=== PATIENT | male | born 1990 | race African-American/Black ===

== ENCOUNTER 2023-06-25 11:31 | Inpatient (IN) ==
--- NOTE | 2023-06-25 12:00 | CT Scan Report ---
CT cervical spine wo con CLINICAL HISTORY: Closed head injury TECHNIQUE: Multidetector row helical CT of the cervical spine was performed without administration of intravenous contrast. Coronal and sagittal reformations were obtained. Automated dose lowering techn iques and/or adjustment according to patient size were utilized for this exam. Comparison: None available at the time of this dictation. FINDINGS: No acute fractures or subluxations are identified. The vertebral body heights and disk spaces are wel l maintained. The alignment is normal. Soft tissues are unremarkable. IMPRESSION: No evidence of acute bony injury. ACT 112: Negative or not required by law. Electronically signed by: Neto Perez M.D. 06/25/2023 11:59 AM
--- NOTE | 2023-06-25 12:08 | CT Scan Report ---
HEAD CT NONCONTRAST CT DOSE: HISTORY: Closed head injury TECHNIQUE: Multiaxial CT images of the head were performed without the use of intravenous contrast. A utomated exposure control was utilized for this study. A dose lowering technique was utilized adheri ng to the principles of ALARA. Comparison: None. Findings: Mild mucosal thickening within the ethmoid air cells. No fluid levels within the paranasal sinuses. The mastoid air cells are clear. The calvarium and skull base are intact. The ventricles and sulci are within normal limits. There is no mass, hematoma, midline shift, or acute infarct. Within the left side of the sella. There is a 2.3 cm oval-shaped density which may be contiguous with the ad jacent left intracranial internal carotid artery. Therefore, this could represent a left ICA aneurysm or possibly suprasellar mass. Impression: 1. No acute infarct or intracranial hemorrhage. 2. There is a 2.3 cm oval-shaped density which may be contiguous with the adjacent left intracranial internal carotid artery. Therefore, this could represent a left ICA aneurysm or possibly suprasellar mass. This is a nonemergent finding. Therefore, nonemergent head CTA is recommended for further evalu ation ACT 112: Positive. There are findings on this exam that require communication between the performing entity and the patient following Patient Test Result Information Act ([place] Act 112) guidelines. Electronically signed by: Cuco Rodriguez M.D. 06/25/2023 12:07 PM
[2023-06-25] MEDS ORDERED: ONDANSETRON INJ 2 MG/ML 2 ML VIAL IV STA (12:24)
[2023-06-25] MEDS ORDERED: FAMOTIDINE 20MG IV PUSH 20 MG/5 ML SYR IV STA (12:24)
[2023-06-25] MEDS ORDERED: ACETAMINOPHEN 1,000 MG/100 ML VIAL IV STA (12:24)
[2023-06-25] MEDS ORDERED: SODIUM CHLORIDE 0.9% 1,000 ML IV STA (12:24)
[2023-06-25] MEDS ORDERED: PANTOprazole 80 MG in DEXTROSE 5% 100 ML IV ONE ×2 (12:24→16:57)
--- NOTE | 2023-06-25 12:32 | Emergency Department Note ---
Impression & Plan Hematemesis, Acute head trauma, Acute GI bleeding, Lower abdominal pain, Anemia ED Provider Note NAME: MCKINLEY LOPEZ AGE: 32 SEX: M : 1990 ARRIVES VIA: Ambulance INFORMANT: [Patient][nursing] ED PROVIDER(S): [Leonidas Stahl MD] CHIEF COMPLAINT: Vomiting, fall HISTORY OF PRESENT ILLNESS: The patient is a 32-year-old male who states that sometime in the [place], he fell. He is not sure what caused the fall but he did strike the back of his head. His roommate told him he fell backwards. He has been vomiting ever since. He was seen at the [facility] and given 25 mg of IM Phenergan. He was sent for evaluation. The patient denies any headache or neck pain. There is no cough or congestion. He has not noticed a fever. He has noticed some right lower quadrant abdominal pain for about 2 days. He is not sure if the pain led to his fall or exactly how/why he fell. Of note, as per nursing staff, the patient had a coffee-ground emesis in the triage waiting area. PMHx/PSHx/Social Hx: See Below PHYSICAL EXAM: GENERAL: Patient is in no acute distress. HEENT: No acute trauma, normocephalic atraumatic, mucous membranes moist, no nasal congestion. NECK: No stridor, no adenopathy, no meningismus, trachea is midline. LUNGS: Clear to auscultation bilaterally, no wheeze, no rhonchi, breath sounds equal. HEART: Subtle systolic murmur, mildly tachycardic, regular rhythm. ABDOMEN: Soft, tender in the lower abdomen, primarily in the right lower abdomen. No abdominal distention. EXTREMITIES: No cyanosis, full range of motion of all the joints without pain or difficulty. NEUROLOGIC: Oriented x 3, no acute motor or sensory deficits, no focal weakness. SKIN: No jaundice, no diaphoresis. DIFFERENTIAL DIAGNOSIS: Concussion, intracranial bleeding, C-spine injury, appendicitis, diverticulitis, viral illness, gastritis, GI bleeding, among others. EMERGENCY DEPARTMENT PROCEDURES: MEDICAL DECISION MAKING: There is no leukocytosis. The patient is anemic with a hemoglobin of 11. I have no old values to use for comparison. There is a normal platelet count. BUN is elevated consistent with potential upper GI bleeding. No renal failure. Magnesium somewhat low at 1.6. No concerning liver enzyme elevation. No evidence for pancreatitis. ECG shows a sinus rhythm, no obvious ischemia. Cardiac enzyme testing x 1 is not consistent with acute cardiac injury. COVID test returned negative. Chest film does not show mediastinal widening, pneumonia or pneumothorax. Brain CT shows no acute bleed. Potential aneurysm was thought possible and a CTA was recommended. CTA of the brain did not show any aneurysm. A presumed chronic lesion was seen for which eventual MRI was recommended. C-spine CT did not show any fracture. Abdominal and pelvis CT did not show any acute surgical process or bowel obstruction. The patient received IV Zofran for nausea, IV Protonix and IV Pepcid. He was given 1 L of IV saline. He was given IV magnesium. He received IV Tylenol. The patient is resting comfortably and without any current complaints. I suspect the patient is suffering from a GI bleed. This may have led to the fall/syncope last night. He had a coffee-ground emesis reported in triage. He has a low hemoglobin and elevated BUN, I do think hospitalization is indicated. Currently, the patient does not require a packed red blood cell transfusion. I spoke with the patient and the guards. I spoke with case management, the on- call hospitalist was consulted. Prior/Outside records/notes reviewed: [facility] notes describing his history and care and the plan for an ED evaluation. ECG per my interpretation: Indication was vomiting. The ECG shows a normal sinus rhythm with a rate of 91. There is no concerning ST elevation. There is an incomplete right bundle branch block. No PVCs but the QTc is 435. Continuous Cardiac Monitoring per my interpretation: An order was placed for continuous cardiac monitoring. The monitor shows a rate of 103 with sinus tachycardia. Imaging/x-ray results per my interpretation: Chest x-ray does not show mediastinal widening, pneumonia or pneumothorax. Chronic Medical/Social conditions affecting care: Currently incarcerated. Care/Management discussed with: Case management, the on-call hospitalist. Level of care consideration(s): After review of the information above and other included data: --I believe the patient requires escalation of care to admission Critical Care Note: I have personally spent 44 minutes of critical care time in the direct management of this patient. This includes bedside care, interpretation of diagnostic studies, and testing, discussion with consultants, patient, and family members, and other required patient management activities. This 44 minutes is in excess of all separately billable procedures. DISPOSITION: Admission Past Med/Surg History Medical History Hypertension Social History Smoking Status: Former smoker Preferred Language: Faroese Feels Safe at Home: Yes Allergies Allergies Allergy/AdvReac Type Severity Reaction Status Date / Time No Known Allergies Allergy Unverified 06/25/23 14:32 Home Meds Home Medications Medication Instructions Recorded Confirmed hydrochlorothiazide 12.5 mg tablet 12.5 mg PO DAILY 06/25/23 06/25/23 lisinopril 40 mg tablet 40 mg PO DAILY 06/25/23 06/25/23 Results & Data (ED) Vital Signs Vital Signs - 24 hr 06/25/23 11:36 06/25/23 12:24 06/25/23 12:46 Temperature 36.4 C L Temperature Source Temporal Artery Scan Pulse Rate 125 H 98 H 114 H Pulse Rate from SpO2 Sensor 115 H Pulse Rhythm Regular Respiratory Rate 16 20 15 Respiratory Effort / Characteristics Non-Labored Spontaneous Respiratory Depth Normal Respiratory Pattern Regular Blood Pressure 173/74 H Blood Pressure Mean 107 Blood Pressure Position Sitting Pulse Oximetry 95 97 98 Oxygen Delivery Method Room Air Room Air Sepsis Recent Fever Within 48 Hours No Sepsis New/Unexplained Change in Mental Status N/A Sepsis Action Taken by Nursing No Action Required 06/25/23 12:48 06/25/23 13:00 06/25/23 13:00 Temperature Temperature Source Pulse Rate 123 H 108 H Pulse Rate from SpO2 Sensor Pulse Rhythm Respiratory Rate 15 Respiratory Effort / Characteristics Respiratory Depth Respiratory Pattern Blood Pressure 157/95 H Blood Pressure Mean 112 Blood Pressure Position Pulse Oximetry Oxygen Delivery Method Sepsis Recent Fever Within 48 Hours Sepsis New/Unexplained Change in Mental Status Sepsis Action Taken by Nursing 06/25/23 13:30 06/25/23 13:30 06/25/23 14:00 Temperature Temperature Source Pulse Rate 105 H 101 H Pulse Rate from SpO2 Sensor 90 95 H Pulse Rhythm Respiratory Rate 12 14 Respiratory Effort / Characteristics Respiratory Depth Respiratory Pattern Blood Pressure 142/77 H Blood Pressure Mean 89 Blood Pressure Position Pulse Oximetry 100 97 Oxygen Delivery Method Sepsis Recent Fever Within 48 Hours Sepsis New/Unexplained Change in Mental Status Sepsis Action Taken by Nursing 06/25/23 14:00 06/25/23 14:30 06/25/23 14:30 Temperature Temperature Source Pulse Rate 92 H Pulse Rate from SpO2 Sensor Pulse Rhythm Respiratory Rate 16 Respiratory Effort / Characteristics Respiratory Depth Respiratory Pattern Blood Pressure 163/90 H 129/81 Blood Pressure Mean 106 96 Blood Pressure Position Pulse Oximetry Oxygen Delivery Method Sepsis Recent Fever Within 48 Hours Sepsis New/Unexplained Change in Mental Status Sepsis Action Taken by [facility] Medications Current Medication List: was personally reviewed by me Laboratory Data Attestation: I reviewed the patient's lab results. 06/25/23 13:00 06/25/23 13:00 Lab Results 06/25/23 06/25/23 Range/Units 13:00 Unknown WBC 9.13 (4.8-10.8) K/ul RBC 3.76 L (4.70-6.10) M/uL Hgb 11.0 L (14.0-18.0) g/dl Hct 34.1 L (42.0-52.0) % MCV 90.7 (80.0-100.0) fL MCH 29.3 (25.0-34.0) pg MCHC 32.3 (32.0-36.0) g/dL RDW Std Deviation 39.8 (36.4-46.3) fL RDW Coeff of Hari 12.0 (11.5-14.5) % Plt Count 237 (130-400) K/uL MPV 11.4 (9.4-12.4) fL Immature Gran % (Auto) 0.3 % Neut % (Auto) 77.0 % Lymph % (Auto) 15.1 % [place] % (Auto) 7.3 % Eos % (Auto) 0.1 % Baso % (Auto) 0.2 % Neut # (Auto) 7.02 H (1.40-6.50) K/uL Lymph # (Auto) 1.38 (1.20-3.40) K/uL [place] # (Auto) 0.67 H (0.11-0.59) K/uL Eos # (Auto) 0.01 (0.00-0.50) K/uL Baso # (Auto) 0.02 (0.00-0.20) K/uL Immature Gran # (Auto) 0.03 (0.01-0.20) K/uL Sodium 139 (136-145) mmol/L Potassium 4.4 (3.5-5.1) mmol/L Chloride 105 (98-107) mmol/L Carbon Dioxide 28 (21-32) mmol/L Anion Gap 6 (3-11) BUN 49 H (6-23) mg/dl Creatinine 0.79 (0.6-1.4) mg/dl Est Cr Clr Drug Dosing 171.0 ml/min Est GFR ( Amer) 135.8 ml/min Est GFR (Non-Af Amer) 117.2 ml/min BUN/Creatinine Ratio 62.0 H (10-20) Glucose 128 H (70-99(Fasting)) mg/dl Calcium 9.9 (8.6-10.3) mg/dl Magnesium 1.6 L (1.7-2.4) mg/dl Total Bilirubin 0.4 (0.2-1.0) mg/dl AST 15 (13-39) U/L ALT 27 (7-52) U/L Alkaline Phosphatase 42 (34-104) U/L Troponin I High Sens 14.8 (0-20) pg/ml Total Protein 6.8 (6.0-8.3) gm/dl Albumin 4.1 (3.4-5.0) gm/dl Globulin 2.7 (2.5-4.0) gm/dl Albumin/Globulin Ratio 1.5 (0.9-2) Lipase 8 L (11-82) U/L SARS-CoV-2, RNA, NAAT NEGATIVE (NEGATIVE) Administered Medications Discontinued Medications Sodium Chloride (Nss) 1,000 mls @ 999 mls/hr IV .Q1H1M STA Stop: 06/25/23 13:24 Last Infusion: 06/25/23 13:40 Dose: Infused Documented By: Admin: 06/25/23 13:05 Dose: 999 mls/hr Documented By: DENNIS Acetaminophen (Ofirmev) 1,000 mg in 100 mls @ 400 mls/hr IV NOW STA Stop: 06/25/23 12:38 Last Infusion: 06/25/23 13:39 Dose: Infused Documented By: Admin: 06/25/23 13:17 Dose: 400 mls/hr Documented By: DENNIS Pantoprazole Sodium 80 mg/ (Dextrose) 120 mls @ 400 mls/hr IV NOW ONE Stop: 06/25/23 12:41 Last Admin: 06/25/23 14:25 Dose: 400 mls/hr Documented By: DENNIS Famotidine (Pepcid 20mg Iv Push) 20 mg in 5 mls @ 2.5 mls/min IV NOW STA Stop: 06/25/23 12:25 Last Admin: 06/25/23 13:16 Dose: 2.5 mls/min Documented By: DENNIS Magnesium Sulfate/Dextrose (Magnesium Sulfate / D5w) 1 gm in 100 mls @ 100 mls/hr IV NOW STA Stop: 06/25/23 14:40 Last Admin: 06/25/23 14:34 Dose: 100 mls/hr Documented By: DENNIS Ioversol (Optiray 320 125ml) 115 ml IV ONCE ONE Stop: 06/25/23 14:14 Last Admin: 06/25/23 14:14 Dose: 115 ml Documented By: NOHELIA Ondansetron HCl (Ondansetron Inj 2 Mg/Ml 2 Ml Vial) 4 mg IV NOW STA Stop: 06/25/23 12:25 Last Admin: 06/25/23 13:15 Dose: 4 mg Documented By: DENNIS Imaging Data Radiologist's Impression: Cervical Spine CT 06/25/23 11:41 CT cervical spine wo con CLINICAL HISTORY: Closed head injury TECHNIQUE: Multidetector row helical CT of the cervical spine was performed without administration of intravenous contrast. Coronal and sagittal reformations were obtained. Automated dose lowering techniques and/or adjustment according to patient size were utilized for this exam. Comparison: None available at the time of this dictation. FINDINGS: No acute fractures or subluxations are identified. The vertebral body heights and disk spaces are well maintained. The alignment is normal. Soft tissues are unremarkable. IMPRESSION: No evidence of acute bony injury. ACT 112: Negative or not required by law. Electronically signed by: Neto Perez M.D. 06/25/2023 11:[address] 06/25/23 11:[address] DOSE: HISTORY: Closed head injury TECHNIQUE: Multiaxial CT images of the head were performed without the use of intravenous contrast. Automated exposure control was utilized for this study. A dose lowering technique was utilized adhering to the principles of ALARA. Comparison: None. Findings: Mild mucosal thickening within the ethmoid air cells. No fluid levels within the paranasal sinuses. The mastoid air cells are clear. The calvarium and skull base are intact. The ventricles and sulci are within normal limits. There is no mass, hematoma, midline shift, or acute infarct. Within the left side of the sella. There is a 2.3 cm oval-shaped density which may be contiguous with the adjacent left intracranial internal carotid artery. Therefore, this could represent a left ICA aneurysm or possibly suprasellar mass. Impression: 1. No acute infarct or intracranial hemorrhage. 2. There is a 2.3 cm oval-shaped density which may be contiguous with the adjacent left intracranial internal carotid artery. Therefore, this could represent a left ICA aneurysm or possibly suprasellar mass. This is a nonemergent finding. Therefore, nonemergent head CTA is recommended for further evaluation ACT 112: Positive. There are findings on this exam that require communication between the performing entity and the patient following Patient Test Result Information Act ([place] Act 112) guidelines. Electronically signed by: Cuco Rodriguez M.D. 06/25/2023 12:07 PM Abdomen/Pelvis CT 06/25/23 12:[address] WITH IV CONTRAST CT DOSE: HISTORY: lower abd pain, vomiting TECHNIQUE: Multiaxial CT images of the abdomen and pelvis were performed following the use of intravenous contrast. A dose lowering technique was utilized adhering to the principles of ALARA. COMPARISON STUDY: None. FINDINGS: There is a 3 mm subpleural nodule within the right lower lobe abutting the major fissure on image 3. There is a 3 mm subpleural nodule within the lingula on image 3. Although indeterminate these are likely benign given the patient's age. No pneumoperitoneum. No pneumatosis. The liver, gallbladder, spleen, adrenal glands, and pancreas unremarkable. There is a 3 mm stone within the lower pole of the left kidney. No right renal calculi. No ureteral calculi. No hydronephrosis. The main portal vein is patent. Normal caliber abdominal aorta. No retroperitoneal or pelvic lymphadenopathy. No pelvic free fluid. The bladder is moderately distended. No bladder wall thickening. The prostate gland is mildly enlarged. No bowel wall thickening or obstruction. Moderate fecal retention. Normal appendix. IMPRESSION: 1. No bowel wall thickening or obstruction. 2. Moderate fecal retention. 3. The bladder is moderately distended. No bladder wall thickening. 4. Left-sided nephrolithiasis. No hydronephrosis. 5. Normal appendix. 6. Additional findings as described above. ACT 112: Negative or not required by law. Electronically signed by: Cuco Rodriguez M.D. 06/25/2023 2:34 PM Chest X-Ray 06/25/23 12:25 XR chest 1V portable CLINICAL HISTORY: abd pain TECHNIQUE: Single frontal radiograph of the chest was obtained. Comparison: None available at the time of this dictation. FINDINGS: No lines and tubes are seen. The cardiomediastinal silhouette is normal. The lungs are clear. No evidence of pleural effusion or pneumothorax. IMPRESSION: No acute chest disease. ACT 112: Negative or not required by law. Electronically signed by: Neto Perez M.D. 06/25/2023 12:55 PM Head CTA 06/25/23 12:28 CT angio head w con CLINICAL HISTORY: 32 years-old Male with abnl plain ct head, vomiting. Acute head trauma COMPARISON STUDY: Head CT of same day TECHNIQUE: Following the IV administration of 115 cc of Optiray, CT angiogram of the brain was performed from the skull base to the vertex. Images are reviewed in the axial, sagittal, and coronal planes. 3-D MIPS images are created and assessed. IV contrast was administered without complication. All measurements were obtained according to NASCET criteria. A dose lowering technique was utilized adhering to the principles of ALARA. CT DOSE: 1739.1 mGy.cm FINDINGS: 2.3 cm ovoid soft tissue attenuating sellar/suprasellar focus is again noted on image 77 series 3. This is chronic with associated remodeling changes of the left sphenoid sinus. Moderate enlargement of the adenoid tonsils. CT ANGIOGRAM OF THE BRAIN: The imaged bilateral internal carotid arteries are patent. The bilateral anterior and middle cerebral arteries are also patent. The vertebrobasilar system and posterior cerebral arteries are widely patent. origin of the posterior cerebral arteries. There is no aneurysm, high-grade stenosis, or proximal branch occlusion identified. Dural sinuses appear patent. IMPRESSION: 1. Unremarkable CTA of the head. Specifically, no internal carotid artery aneurysm is present. 2. 2.3 cm oval-shaped structure within the sella/suprasellar distribution again noted which could be further characterized with a nonemergent follow-up MRI of the brain utilizing pituitary protocol. ACT 112: Negative or not required by law. The above report was generated using voice recognition software. It may contain grammatical, syntax or spelling errors. Electronically signed by: Jose Roche M.D. 06/25/2023 3:02 PM Discharge Plan Visit Data Chief Complaint: Fall Stated Complaint: FALL ED Provider: Leonidas Stahl Discharge Problem: Hematemesis, Acute head trauma, Acute GI bleeding, Lower abdominal pain, Anemia Patient Disposition: Admitted As Inpatient Condition: Fair Forms Stand Alone Forms: [facility] Prescriptions Prescriptions: No Action lisinopril 40 mg Tablet 40 mg PO DAILY hydrochlorothiazide 12.5 mg Tablet 12.5 mg PO DAILY Referrals Referrals: PCP,NO [Physician] - Discharge Problem: Hematemesis Qualifiers: Nausea presence: with nausea Qualified Code(s): K92.0 - Hematemesis Acute head trauma Qualifiers: Encounter type: initial encounter Qualified Code(s): S09.90XA - Unspecified injury of head, initial encounter Anemia Qualifiers: Anemia type: unspecified type Qualified Code(s): D64.9 - Anemia, unspecified
--- NOTE | 2023-06-25 12:56 | XRay Report ---
XR chest 1V portable CLINICAL HISTORY: abd pain TECHNIQUE: Single frontal radiograph of the chest was obtained. Comparison: None available at the time of this dictation. FINDINGS: No lines and tubes are seen. The cardiomediastinal silhouette is normal. The lungs are clear. No evid ence of pleural effusion or pneumothorax. IMPRESSION: No acute chest disease. ACT 112: Negative or not required by law. Electronically signed by: Neto Perez M.D. 06/25/2023 12:55 PM
[2023-06-25 13:24] LABS: Basophils # (auto) 0.02 K/uL (0.00-0.20); Basophils % (auto) 0.2 %; Eosinophils # (auto) 0.01 K/uL (0.00-0.50); Eosinophils % (auto) 0.1 %; Hematocrit (blood only) 34.1 % (42.0-52.0); Immature Granulocytes # (auto) 0.03 K/uL (0.01-0.20); Immature Granulocytes % (auto) 0.3 %; Lymphocytes # (auto) 1.38 K/uL (1.20-3.40); Lymphocytes % (auto) 15.1 %; Mean Corpuscular Hemoglobin 29.3 pg (25.0-34.0); Mean Corpuscular Hgb Conc 32.3 g/dL (32.0-36.0); Mean Corpuscular Volume 90.7 fL (80.0-100.0); Mean Platelet Volume 11.4 fL (9.4-12.4); Monocytes # (auto) 0.67 K/uL (0.11-0.59); Monocytes % (auto) 7.3 %; Neutrophils # (auto) 7.02 K/uL (1.40-6.50); Platelet Count 237 K/uL (130-400); RDW Standard Deviation 39.8 fL (36.4-46.3); Red Blood Count 3.76 M/uL (4.70-6.10); White Blood Count 9.13 K/ul (4.8-10.8)
[2023-06-25 13:34] LABS: Est GFR (African American) 135.8 ml/min; Est GFR (Non-African American) 117.2 ml/min; Potassium 4.4 mmol/L (3.5-5.1)
[2023-06-25 13:35] LABS: Albumin Globulin Ratio 1.5 (0.9-2); Albumin Level 4.1 gm/dl (3.4-5.0); Bilirubin,Total 0.4 mg/dl (0.2-1.0); Calcium 9.9 mg/dl (8.6-10.3); Globulin 2.7 gm/dl (2.5-4.0); Magnesium 1.6 mg/dl (1.7-2.4); Total Protein 6.8 gm/dl (6.0-8.3)
[2023-06-25 13:38] LABS: Troponin I High Sensitivity 14.8 pg/ml (0-20)
[2023-06-25] MEDS ORDERED: MAGNESIUM SULFATE / D5W 1 GM/100 ML BAG IV STA (13:41)
[2023-06-25] MEDS ORDERED: OPTIRAY 320 125ml IV ONE (14:13)
--- NOTE | 2023-06-25 14:35 | CT Scan Report ---
ABDOMEN AND PELVIS CT WITH IV CONTRAST CT DOSE: HISTORY: lower abd pain, vomiting TECHNIQUE: Multiaxial CT images of the abdomen and pelvis were performed following the use of intrave nous contrast. A dose lowering technique was utilized adhering to the principles of ALARA. COMPARISON STUDY: None. FINDINGS: There is a 3 mm subpleural nodule within the right lower lobe abutting the major fissure on image 3. There is a 3 mm subpleural nodule within the lingula on image 3. Although indeterminate the se are likely benign given the patient's age. No pneumoperitoneum. No pneumatosis. The liver, gallbla dder, spleen, adrenal glands, and pancreas unremarkable. There is a 3 mm stone within the lower pole of the left kidney. No right renal calculi. No ureteral calculi. No hydronephrosis. The main portal v ein is patent. Normal caliber abdominal aorta. No retroperitoneal or pelvic lymphadenopathy. No pelvi c free fluid. The bladder is moderately distended. No bladder wall thickening. The prostate gland is mildly enlarged. No bowel wall thickening or obstruction. Moderate fecal retention. Normal appendix. IMPRESSION: 1. No bowel wall thickening or obstruction. 2. Moderate fecal retention. 3. The bladder is moderately distended. No bladder wall thickening. 4. Left-sided nephrolithiasis. No hydronephrosis. 5. Normal appendix. 6. Additional findings as described above. ACT 112: Negative or not required by law. Electronically signed by: Cuco Rodriguez M.D. 06/25/2023 2:34 PM
--- NOTE | 2023-06-25 15:04 | CT Scan Report ---
CT angio head w con CLINICAL HISTORY: 32 years-old Male with abnl plain ct head, vomiting. Acute head trauma COMPARISON STUDY: Head CT of same day TECHNIQUE: Following the IV administration of 115 cc of Optiray, CT angiogram of the brain was perfor med from the skull base to the vertex. Images are reviewed in the axial, sagittal, and coronal planes . 3-D MIPS images are created and assessed. IV contrast was administered without complication. All me asurements were obtained according to NASCET criteria. A dose lowering technique was utilized adherin g to the principles of ALARA. CT DOSE: 1739.1 mGy.cm FINDINGS: 2.3 cm ovoid soft tissue attenuating sellar/suprasellar focus is again noted on image 77 series 3. Th is is chronic with associated remodeling changes of the left sphenoid sinus. Moderate enlargement of the adenoid tonsils. CT ANGIOGRAM OF THE BRAIN: The imaged bilateral internal carotid arteries are patent. The bilateral anterior and middle cerebral arteries are also patent. The vertebrobasilar system and posterior cerebral arteries are widely maria nt. origin of the posterior cerebral arteries. There is no aneurysm, high-grade stenosis, or pr oximal branch occlusion identified. Dural sinuses appear patent. IMPRESSION: 1. Unremarkable CTA of the head. Specifically, no internal carotid artery aneurysm is present. 2. 2.3 cm oval-shaped structure within the sella/suprasellar distribution again noted which could be further characterized with a nonemergent follow-up MRI of the brain utilizing pituitary protocol. ACT 112: Negative or not required by law. The above report was generated using voice recognition software. It may contain grammatical, syntax o r spelling errors. Electronically signed by: Jose Roche M.D. 06/25/2023 3:02 PM
[2023-06-25 16:26] LABS: Appearance Urine Clear (Clear); Bilirubin Urine Negative (Negative); Blood Urine 1+ (Negative); Color Urine Yellow; Glucose Urine UA Negative (Negative); Ketones Urine Negative (Negative); Leukocyte Esterase Urine Negative (Negative); Nitrite Urine Negative (Negative); Protein Urine Negative (Negative); Urobilinogen Urine Negative (Negative)
[2023-06-25 16:29] LABS: Bacteria Urine Negative (Negative); Epithelial Cell Urine 0-5 /lpf (0-5); RBC Urine 0-4 /hpf (0-4); Sperm Urine Present (None Prsent); WBC Urine 0-5 /hpf (0-5)
--- NOTE | 2023-06-25 16:35 | History & Physical Report ---
Date of Service June 25, 2023 Assessment & Plan (1) Acute GI bleeding: Plan: Admit to floor Vital signs protocol Bedrest Orthostatics to be ordered IV fluids started Serial H&H monitoring GI evaluation IV Protonix (2) Anemia: Plan: Appears to be normochromic normocytic anemia probably secondary to acute blood loss. 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 Patient does not remember how it happened. He was on the floor was cold and clammy, witnessed episode . Patient also mentions been having left lower abdominal pain for the past few days. Denies any trauma had no difficulty in walking . No radiation of the abdominal pain to the groin or to the back. He noted today that he had multiple episodes of nausea with vomiting coffee-ground. Also noted to be dizzy and found to be increasing dizzy while trying to get up from lying to sitting position .his initial blood tests showed a low hemoglobin of 11 with no previous comparison data. Patient has no fever, no cough, no chest pain, no shortness of breath Allergies Allergy/AdvReac Type Severity Reaction Status Date / Time No Known Allergies Allergy Unverified 06/25/23 14:32 Home Medications Medication Instructions Recorded Confirmed Type hydrochlorothiazide 12.5 mg tablet 12.5 mg PO DAILY 06/25/23 06/25/23 History lisinopril 40 mg tablet 40 mg PO DAILY 06/25/23 06/25/23 History Past Med/Surg History Medical History Hypertension Social History Smoking Status: Former smoker Preferred Language: Ivorian Feels Safe at Home: Yes Review of Systems Review of Systems: As noted in H&P, rest reviewed is negative Physical Exam Physical Exam: HEENT:No JVD , Normocephalic , atraumatic CV: S1/S2+ , no murmurs Resp: Air entry present bilaterally.no crackles, no wheeze . GI: Abdomen non tender , no tenderness elicited in left lower quadrant. Musculoskeletal: examined for joint tenderness. Skin: no rashes Psych: Normal affect Neuro: Patient is awake alert not in distress , No focal neuro deficits noted Ext: no edema. Results & Data Results & Data Vital Signs (Past 12 Hours) Vital Signs Temp Pulse Pulse Resp BP BP Pulse Ox 06/25/23 14:30 92 H 16 06/25/23 14:30 129/81 06/25/23 14:00 163/90 H 06/25/23 14:00 101 H 14 97 06/25/23 13:30 105 H 12 100 06/25/23 13:30 142/77 H 06/25/23 13:00 108 H 15 06/25/23 13:00 157/95 H 06/25/23 12:48 123 H 06/25/23 12:46 114 H 15 98 06/25/23 12:24 98 H 20 97 06/25/23 12:15 90 20 129/69 97 06/25/23 11:36 36.4 C L 125 H 16 173/74 H 95 O2 Del Method 06/25/23 14:30 06/25/23 14:30 06/25/23 14:00 06/25/23 14:00 06/25/23 13:30 06/25/23 13:30 06/25/23 13:00 06/25/23 13:00 06/25/23 12:48 06/25/23 12:46 06/25/23 12:24 Room Air 06/25/23 12:15 Room Air 06/25/23 11:36 Room Air Laboratory Results 06/25/23 06/25/23 Unknown 13:00 WBC 9.13 RBC 3.76 L Hgb 11.0 L Hct 34.1 L MCV 90.7 MCH 29.3 MCHC 32.3 RDW Std Deviation 39.8 RDW Coeff of Hari 12.0 Plt Count 237 MPV 11.4 Immature Gran % (Auto) 0.3 Neut % (Auto) 77.0 Lymph % (Auto) 15.1 [place] % (Auto) 7.3 Eos % (Auto) 0.1 Baso % (Auto) 0.2 Neut # (Auto) 7.02 H Lymph # (Auto) 1.38 [place] # (Auto) 0.67 H Eos # (Auto) 0.01 Baso # (Auto) 0.02 Immature Gran # (Auto) 0.03 Sodium 139 Potassium 4.4 Chloride 105 Carbon Dioxide 28 Anion Gap 6 BUN 49 H Creatinine 0.79 Est Cr Clr Drug Dosing 171.0 Est GFR ( Amer) 135.8 Est GFR (Non-Af Amer) 117.2 BUN/Creatinine Ratio 62.0 H Glucose 128 H Calcium 9.9 Magnesium 1.6 L Total Bilirubin 0.4 AST 15 ALT 27 Alkaline Phosphatase 42 Troponin I High Sens 14.8 Total Protein 6.8 Albumin 4.1 Globulin 2.7 Albumin/Globulin Ratio 1.5 Lipase 8 L Urine Color Yellow Urine Appearance Clear Urine pH 6.0 Ur Specific [place] 1.010 Urine Protein Negative Urine Glucose (UA) Negative Urine Ketones Negative Urine Blood 1+ H Urine Nitrite Negative Urine Bilirubin Negative Urine Urobilinogen Negative Ur Leukocyte Esterase Negative SARS-CoV-2, RNA, NAAT NEGATIVE Laboratory Results WBC 9.13 K/ul (4.8-10.8) 06/25/23 13:00 RBC 3.76 M/uL (4.70-6.10) L 06/25/23 13:00 Hgb 11.0 g/dl (14.0-18.0) L 06/25/23 13:00 Hct 34.1 % (42.0-52.0) L 06/25/23 13:00 MCV 90.7 fL (80.0-100.0) 06/25/23 13:00 MCH 29.3 pg (25.0-34.0) 06/25/23 13:00 MCHC 32.3 g/dL (32.0-36.0) 06/25/23 13:00 RDW Std Deviation 39.8 fL (36.4-46.3) 06/25/23 13:00 RDW Coeff of Hari 12.0 % (11.5-14.5) 06/25/23 13:00 Plt Count 237 K/uL (130-400) 06/25/23 13:00 MPV 11.4 fL (9.4-12.4) 06/25/23 13:00 Immature Gran % (Auto) 0.3 % 06/25/23 13:00 Neut % (Auto) 77.0 % 06/25/23 13:00 Lymph % (Auto) 15.1 % 06/25/23 13:00 [place] % (Auto) 7.3 % 06/25/23 13:00 Eos % (Auto) 0.1 % 06/25/23 13:00 Baso % (Auto) 0.2 % 06/25/23 13:00 Neut # (Auto) 7.02 K/uL (1.40-6.50) H 06/25/23 13:00 Lymph # (Auto) 1.38 K/uL (1.20-3.40) 06/25/23 13:00 [place] # (Auto) 0.67 K/uL (0.11-0.59) H 06/25/23 13:00 Eos # (Auto) 0.01 K/uL (0.00-0.50) 06/25/23 13:00 Baso # (Auto) 0.02 K/uL (0.00-0.20) 06/25/23 13:00 Immature Gran # (Auto) 0.03 K/uL (0.01-0.20) 06/25/23 13:00 Sodium 139 mmol/L (136-145) 06/25/23 13:00 Potassium 4.4 mmol/L (3.5-5.1) 06/25/23 13:00 Chloride 105 mmol/L (98-107) 06/25/23 13:00 Carbon Dioxide 28 mmol/L (21-32) 06/25/23 13:00 Anion Gap 6 (3-11) 06/25/23 13:00 BUN 49 mg/dl (6-23) H 06/25/23 13:00 Creatinine 0.79 mg/dl (0.6-1.4) 06/25/23 13:00 Est Cr Clr Drug Dosing 171.0 ml/min 06/25/23 13:00 Est GFR ( Amer) 135.8 ml/min 06/25/23 13:00 Est GFR (Non-Af Amer) 117.2 ml/min 06/25/23 13:00 BUN/Creatinine Ratio 62.0 (10-20) H 06/25/23 13:00 Glucose 128 mg/dl (70-99(Fasting)) H 06/25/23 13:00 Calcium 9.9 mg/dl (8.6-10.3) 06/25/23 13:00 Magnesium 1.6 mg/dl (1.7-2.4) L 06/25/23 13:00 Total Bilirubin 0.4 mg/dl (0.2-1.0) 06/25/23 13:00 AST 15 U/L (13-39) 06/25/23 13:00 ALT 27 U/L (7-52) 06/25/23 13:00 Alkaline Phosphatase 42 U/L (34-104) 06/25/23 13:00 Troponin I High Sens 14.8 pg/ml (0-20) 06/25/23 13:00 Total Protein 6.8 gm/dl (6.0-8.3) 06/25/23 13:00 Albumin 4.1 gm/dl (3.4-5.0) 06/25/23 13:00 Globulin 2.7 gm/dl (2.5-4.0) 06/25/23 13:00 Albumin/Globulin Ratio 1.5 (0.9-2) 06/25/23 13:00 Lipase 8 U/L (11-82) L 06/25/23 13:00 Urine Color Yellow 06/25/23 Unknown Urine Appearance Clear (Clear) 06/25/23 Unknown Urine pH 6.0 (4.5-7.5) 06/25/23 Unknown Ur Specific [place] 1.010 (1.000-1.030) 06/25/23 Unknown Urine Protein Negative (Negative) 06/25/23 Unknown Urine Glucose (UA) Negative (Negative) 06/25/23 Unknown Urine Ketones Negative (Negative) 06/25/23 Unknown Urine Blood 1+ (Negative) H 06/25/23 Unknown Urine Nitrite Negative (Negative) 06/25/23 Unknown Urine Bilirubin Negative (Negative) 06/25/23 Unknown Urine Urobilinogen Negative (Negative) 06/25/23 Unknown Ur Leukocyte Esterase Negative (Negative) 06/25/23 Unknown Urine RBC 0-4 /hpf (0-4) 06/25/23 Unknown Urine WBC 0-5 /hpf (0-5) 06/25/23 Unknown Ur Epithelial Cells 0-5 /lpf (0-5) 06/25/23 Unknown Urine Bacteria Negative (Negative) 06/25/23 Unknown Hyaline Casts 5-10 /lpf (0-5) H 06/25/23 Unknown Urine Sperm Present (None Prsent) A 06/25/23 Unknown SARS-CoV-2, RNA, NAAT NEGATIVE (NEGATIVE) 06/25/23 Unknown Impressions Cervical Spine CT 06/25/23 11:41 CT cervical spine wo con CLINICAL HISTORY: Closed head injury TECHNIQUE: Multidetector row helical CT of the cervical spine was performed without administration of intravenous contrast. Coronal and sagittal reformations were obtained. Automated dose lowering techniques and/or adjustment according to patient size were utilized for this exam. Comparison: None available at the time of this dictation. FINDINGS: No acute fractures or subluxations are identified. The vertebral body heights and disk spaces are well maintained. The alignment is normal. Soft tissues are unremarkable. IMPRESSION: No evidence of acute bony injury. ACT 112: Negative or not required by law. Electronically signed by: Neto Perez M.D. 06/25/2023 11:[address] 06/25/23 11:[address] DOSE: HISTORY: Closed head injury TECHNIQUE: Multiaxial CT images of the head were performed without the use of intravenous contrast. Automated exposure control was utilized for this study. A dose lowering technique was utilized adhering to the principles of ALARA. Comparison: None. Findings: Mild mucosal thickening within the ethmoid air cells. No fluid levels within the paranasal sinuses. The mastoid air cells are clear. The calvarium and skull base are intact. The ventricles and sulci are within normal limits. There is no mass, hematoma, midline shift, or acute infarct. Within the left side of the sella. There is a 2.3 cm oval-shaped density which may be contiguous with the adjacent left intracranial internal carotid artery. Therefore, this could represent a left ICA aneurysm or possibly suprasellar mass. Impression: 1. No acute infarct or intracranial hemorrhage. 2. There is a 2.3 cm oval-shaped density which may be contiguous with the adjacent left intracranial internal carotid artery. Therefore, this could represent a left ICA aneurysm or possibly suprasellar mass. This is a nonemergent finding. Therefore, nonemergent head CTA is recommended for further evaluation ACT 112: Positive. There are findings on this exam that require communication between the performing entity and the patient following Patient Test Result Information Act ([place] Act 112) guidelines. Electronically signed by: Cuco Rodriguez M.D. 06/25/2023 12:07 PM Abdomen/Pelvis CT 06/25/23 12:[address] WITH IV CONTRAST CT DOSE: HISTORY: lower abd pain, vomiting TECHNIQUE: Multiaxial CT images of the abdomen and pelvis were performed f ollowing the use of intravenous contrast. A dose lowering technique was utilized adhering to the principles of ALARA. COMPARISON STUDY: None. FINDINGS: There is a 3 mm subpleural nodule within the right lower lobe abutting the major fissure on image 3. There is a 3 mm subpleural nodule within the lingula on image 3. Although indeterminate these are likely benign given the patient's age. No pneumoperitoneum. No pneumatosis. The liver, gallbladder, spleen, adrenal glands, and pancreas unremarkable. There is a 3 mm stone within the lower pole of the left kidney. No right renal calculi. No ureteral calculi. No hydronephrosis. The main portal vein is patent. Normal caliber abdominal aorta. No retroperitoneal or pelvic lymphadenopathy. No pelvic free fluid. The bladder is moderately distended. No bladder wall thickening. The prostate gland is mildly enlarged. No bowel wall thickening or obstruction. Moderate fecal retention. Normal appendix. IMPRESSION: 1. No bowel wall thickening or obstruction. 2. Moderate fecal retention. 3. The bladder is moderately distended. No bladder wall thickening. 4. Left-sided nephrolithiasis. No hydronephrosis. 5. Normal appendix. 6. Additional findings as described above. ACT 112: Negative or not required by law. Electronically signed by: Cuco Rodriguez M.D. 06/25/2023 2:34 PM Chest X-Ray 06/25/23 12:25 XR chest 1V portable CLINICAL HISTORY: abd pain TECHNIQUE: Single frontal radiograph of the chest was obtained. Comparison: None available at the time of this dictation. FINDINGS: No lines and tubes are seen. The cardiomediastinal silhouette is normal. The lungs are clear. No evidence of pleural effusion or pneumothorax. IMPRESSION: No acute chest disease. ACT 112: Negative or not required by law. Electronically signed by: Neto Perez M.D. 06/25/2023 12:55 PM Head CTA 06/25/23 12:28 CT angio head w con CLINICAL HISTORY: 32 years-old Male with abnl plain ct head, vomiting. Acute head trauma COMPARISON STUDY: Head CT of same day TECHNIQUE: Following the IV administration of 115 cc of Optiray, CT angiogram of the brain was performed from the skull base to the vertex. Images are reviewed in the axial, sagittal, and coronal planes. 3-D MIPS images are created and assessed. IV contrast was administered without complication. All measurements were obtained according to NASCET criteria. A dose lowering technique was utilized adhering to the principles of ALARA. CT DOSE: 1739.1 mGy.cm FINDINGS: 2.3 cm ovoid soft tissue attenuating sellar/suprasellar focus is again noted on image 77 series 3. This is chronic with associated remodeling changes of the left sphenoid sinus. Moderate enlargement of the adenoid tonsils. CT ANGIOGRAM OF THE BRAIN: The imaged bilateral internal carotid arteries are patent. The bilateral anterior and middle cerebral arteries are also patent. The vertebrobasilar system and posterior cerebral arteries are widely patent. origin of the posterior cerebral arteries. There is no aneurysm, high-grade stenosis, or proximal branch occlusion identified. Dural sinuses appear patent. IMPRESSION: 1. Unremarkable CTA of the head. Specifically, no internal carotid artery aneurysm is present. 2. 2.3 cm oval-shaped structure within the sella/suprasellar distribution again noted which could be further characterized with a nonemergent follow-up MRI of the brain utilizing pituitary protocol. ACT 112: Negative or not required by law. The above report was generated using voice recognition software. It may contain grammatical, syntax or spelling errors. Electronically signed by: Jose Roche M.D. 06/25/2023 3:02 PM Diagnostic Findings Noted to have low magnesium levels, elevated BUN, low hemoglobin Code Status & VTE Plan Code Status Patient is a full code VTE Prophylaxis Plan VTE Prophylaxis will be ordered: No (2) Anemia Anemia type: unspecified type Qualified Code(s): D64.9 - Anemia, unspecified (4) Acute head trauma Encounter type: initial encounter Qualified Code(s): S09.90XA - Unspecified injury of head, initial encounter (5) Hematemesis Nausea presence: with nausea Qualified Code(s): K92.0 - Hematemesis
[2023-06-25] MEDS ORDERED: SODIUM CHLORIDE 0.9% 1,000 ML IV ONE (16:43)
[2023-06-25] MEDS ORDERED: ONDANSETRON INJ 2 MG/ML 2 ML VIAL IV PRN (16:57)
[2023-06-25] MEDS ORDERED: SODIUM CHLORIDE 0.9% 1,000 ML IV SCH (16:57)
[2023-06-25] MEDS ORDERED: PANTOPRAZOLE BOLUS/DRIP IV STA (16:57)
[2023-06-25] MEDS ORDERED: POLYETHYLENE (MIRALAX) 17 GM PACK PO PRN (16:57)
[2023-06-25] MEDS: PANTOprazole 40 MG in DEXTROSE 5% MINI-B 100 ML IV SCH ×2 (17:48→23:28)
[2023-06-25] MEDS ORDERED: Nursing to Pharmacy Communication SCH (18:00)
--- NOTE | 2023-06-25 19:50 | Magnetic Resonance Report ---
Brain MRI WITHOUT CONTRAST HISTORY: Abnormal head CT. Evaluate suprasellar lesion. TECHNIQUE: Sagittal T1, axial DWI, axial T2, axial T1, and ADC maps of the brain were obtained utiliz ing 1.5 Carito MRI. The patient was unable to complete the entire examination. COMPARISON STUDY: None. FINDINGS: No areas restricted diffusion to suggest acute infarction. The ventricles and sulci are wit hin normal limits. The major vascular flow-voids at the skull base are maintained. There is no hemato ma or midline shift. The orbits unremarkable. Mild mucosal thickening within the ethmoid air cells. T he mastoid air cells are clear. There is again noted a T1 and T2 heterogeneous suprasellar expansile lesion which abuts the left side of the cavernous ICA. This measures approximately 2.7 x 2.1 x 2.1 cm . This is predominantly along the left side of the sella turcica may demonstrate a small amount of cy stic change/internal hemorrhage.. No significant displacement of the pituitary stalk. This does not a ppear to abut the optic chiasm. This is suboptimally assessed on this incomplete study but may repres ent a pituitary macroadenoma IMPRESSION: 1. The patient was unable to complete the entire examination. Therefore, the pituitary lesion was sub optimally assessed. 2. No acute infarct or intracranial hemorrhage. 3. A 2.7 x 2.1 x 2.1 cm suprasellar heterogeneous mass. 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 ACT 112: Negative or not required by law. Electronically signed by: Cuco Rodriguez M.D. 06/25/2023 7:47 PM
[2023-06-25 21:32] LABS: Hematocrit (blood only) 27.9 % (42.0-52.0); Hemoglobin 9.5 g/dl (14.0-18.0)
[2023-06-25] MEDS: SODIUM CHLORIDE 0.9% 1,000 ML IV SCH (23:29)
[2023-06-26] MEDS: PANTOprazole 40 MG in DEXTROSE 5% MINI-B 100 ML IV SCH ×3 (03:45→12:57)
--- NOTE | 2023-06-26 06:18 | Electrocardiogram Report ---
Test Reason : Blood Pressure : / mmHG Vent. Rate : 091 BPM Atrial Rate : 091 BPM P-R Int : 144 ms QRS Dur : 112 ms QT Int : 354 ms P-R-T Axes : 030 077 030 degrees QTc Int : 435 ms Normal sinus rhythm Incomplete right bundle branch block Borderline ECG No previous ECGs available Confirmed by Kavon Baez ([id number]) on 06/26/2023 6:17:51 AM Referred By: Ivy BLUNT Confirmed By:Kavon Baez
[2023-06-26 06:48] LABS: Basophils # (auto) 0.01 K/uL (0.00-0.20); Basophils % (auto) 0.2 %; Eosinophils # (auto) 0.15 K/uL (0.00-0.50); Eosinophils % (auto) 2.7 %; Hematocrit (blood only) 25.9 % (42.0-52.0); Hemoglobin 8.7 g/dl (14.0-18.0); Immature Granulocytes # (auto) 0.01 K/uL (0.01-0.20); Immature Granulocytes % (auto) 0.2 %; Lymphocytes # (auto) 2.02 K/uL (1.20-3.40); Lymphocytes % (auto) 36.3 %; Mean Corpuscular Hemoglobin 29.9 pg (25.0-34.0); Mean Corpuscular Hgb Conc 33.6 g/dL (32.0-36.0); Mean Platelet Volume 10.8 fL (9.4-12.4); Monocytes # (auto) 0.51 K/uL (0.11-0.59); Monocytes % (auto) 9.2 %; Neutrophils # (auto) 2.86 K/uL (1.40-6.50); Neutrophils % (auto) 51.4 %; Platelet Count 179 K/uL (130-400); RDW Coefficient of Variation 12.4 % (11.5-14.5); RDW Standard Deviation 40.3 fL (36.4-46.3); Red Blood Count 2.91 M/uL (4.70-6.10); White Blood Count 5.56 K/ul (4.8-10.8)
[2023-06-26] MEDS: SODIUM CHLORIDE 0.9% 1,000 ML IV SCH ×3 (07:17→23:04)
[2023-06-26 07:25] LABS: Albumin Globulin Ratio 1.5 (0.9-2); Albumin Level 3.5 gm/dl (3.4-5.0); Bilirubin,Total 0.4 mg/dl (0.2-1.0); Calcium 8.9 mg/dl (8.6-10.3); Creatinine Clr Calc Pharmacy 185.9 ml/min; Est GFR (African American) 140.3 ml/min; Globulin 2.4 gm/dl (2.5-4.0); Magnesium 1.6 mg/dl (1.7-2.4); Potassium 3.5 mmol/L (3.5-5.1); Total Protein 5.9 gm/dl (6.0-8.3)
[2023-06-26 07:29] LABS: Folate (Folic Acid),Ser orPlas > 22.30 ng/ml (>5.38); Vitamin B12 151 pg/ml (180-914)
[2023-06-26 07:35] LABS: Thyroid Stimulating Hormone 1.464 uIu/ml (0.300-4.500)
[2023-06-26 07:48] LABS: Ferritin 10.7 ng/ml (8-388)
--- NOTE | 2023-06-26 08:45 | Anesthesiology Consultation ---
Date of Service June 26, 2023 Assessment & Plan (1) Encounter for pre-operative examination: Chart Review Chart Review: Acceptable Risk for Surgery and Patient NOT seen in Pre Admission Testing Consults Requested none History Surgery Operation Date: 06/26/23 17:45 Proposed Procedures p Esophagogastroduodenoscopy Dr José - Maikol José MD Height/Weight Height: 6 ft Weight: 114 kg Allergies Allergy/AdvReac Type Severity Reaction Status Date / Time No Known Allergies Allergy Unverified 06/25/23 14:32 Medications Home Medications Medication Instructions Recorded Confirmed Last Taken hydrochlorothiazide 12.5 mg tablet 12.5 mg PO DAILY 06/25/23 06/25/23 Unknown lisinopril 40 mg tablet 40 mg PO DAILY 06/25/23 06/25/23 Unknown Active Medications Generic Name Dose Route Start Last Admin Trade Name Freq PRN Reason Stop Dose Admin Pantoprazole Sodium 40 mg/ 100 mls @ 20 mls/hr 06/25/23 17:15 06/26/23 07:17 Dextrose IV 07/25/23 17:14 8 mg/hr Q5H RIANNA 20 mls/hr Administration 8 MG/HR Sodium Chloride 1,000 mls @ 125 mls/hr 06/26/23 00:30 06/26/23 07:17 Nss IV 07/26/23 00:29 125 mls/hr .Q8H RIANNA Administration NPO Date Last Intake of Fluids: 06/26/23 Time Last Intake of Fluids: 08:00 Date Last Intake of Solids: 06/24/23 Time Last Intake of Solids: 17:00 Past Medical History Medical History (Updated 06/26/23 @ 08:45 by Castillo Olivier DO) Anemia Acute GI bleeding Hematemesis Hypertension Past Family History Family History (Updated 06/26/23 @ 08:44 by Castillo Olivier DO) Other Acute GI bleeding Social History Smoking Status: Current every day smoker Hx Alcohol Use: No Hx Substance Use: No Physical Exam Vital Signs Last Vital Signs Temp 99.0 F 06/26/23 08:35 Pulse 98 H 06/26/23 08:35 Resp 18 06/26/23 08:35 BP 131/81 06/26/23 08:35 Pulse Ox 98 06/26/23 08:35 O2 Del Method Room Air 01/16/24 08:35 Testing Laboratory Results 06/26/23 06:13 06/26/23 06:13 Urine Color Yellow 06/25/23 Unknown Urine Appearance Clear (Clear) 06/25/23 Unknown Urine pH 6.0 (4.5-7.5) 06/25/23 Unknown Ur Specific [place] 1.010 (1.000-1.030) 06/25/23 Unknown Urine Protein Negative (Negative) 06/25/23 Unknown Urine Glucose (UA) Negative (Negative) 06/25/23 Unknown Urine Ketones Negative (Negative) 06/25/23 Unknown Urine Nitrite Negative (Negative) 06/25/23 Unknown Ur Leukocyte Esterase Negative (Negative) 06/25/23 Unknown Urine RBC 0-4 /hpf (0-4) 06/25/23 Unknown Urine WBC 0-5 /hpf (0-5) 06/25/23 Unknown Ur Epithelial Cells 0-5 /lpf (0-5) 06/25/23 Unknown
--- NOTE | 2023-06-26 08:56 | Gastrointestinal Consultation ---
Date of Consultation June 26, 2023 Assessment & Plan (1) Coffee ground emesis: Plan Agree with NPO, PPI drip. EGD today by Dr. José for coffee grounds emesis x 3 and for anemia (normocytic, likely acute blood loss anemia). Supervising Physician Co-Signing Physician Notes I performed a history and physical examination of the patient today, including specifically on physical exam - soft abdomen. I have discussed the patient's management with the advanced practitioner. Please refer to the nurse practitioner's note for the documented findings and plan of care. EGD Patient was explained in detail regarding risks, benefits, limitations and alternatives of the above endoscopic procedure. Risks of intravenous sedation used for procedure were also explained. Risks include, but not limited to perforation, bleeding, infection, respiratory distress, cardiac arrest and . Patient is also aware about the possibility of missed lesion. Patient's questions were answered. The patient verbalized understanding the information and agreed to undergo the procedure. History of Present Illness Reason for Consultation: coffee grounds emesis Requesting Physician: Nirali Hannah PA-C Attending Physician: Vicky Avila MD History of Present Illness Mr. Erick Guajardo is a 32 yr old male inmate at [facility] a hx of HTN reports that he has had moderate LLQ pain and vomited once two days ago and once yesterday prior to arrival here. He was brought because he had a syncopal episode, falling (imaging of head/neck w/o abnormalities). Then in the ED, he was witnessed to vomit up coffee grounds emesis once. On arrival Hb 11->8 this morning. No BM since two days ago and at that time it was brown and formed. He is not on any anticoagulants and no NSAID use. He is hemodynamically stable, awake, alert, oriented, comfortable. Allergies Allergy/AdvReac Type Severity Reaction Status Date / Time No Known Allergies Allergy Unverified 06/25/23 14:32 Home Medications Medication Instructions Recorded Confirmed Type hydrochlorothiazide 12.5 mg tablet 12.5 mg PO DAILY 06/25/23 06/25/23 History lisinopril 40 mg tablet 40 mg PO DAILY 06/25/23 06/25/23 History Patient History Medical History (Updated 06/26/23 @ 08:55 by DEBO Farfan) Anemia Acute GI bleeding Hematemesis Hypertension Family History (Updated 06/26/23 @ 08:44 by Castillo Olivier DO) Other Acute GI bleeding Social History Smoking Status: Current every day smoker Tobacco Type: E-cigarettes / Vaping Hx Alcohol Use: No Hx Substance Use: No Preferred Language: Chinese Communication Ability: Effective Guest Relations Coordinator Required: No Beliefs That Will Affect Care: None Current Living Situation: Other Current Living Situation Comment: inmate Feels Safe at Home: Yes Safety Concerns: Feels Safe At This Time Assistive Devices: None Review of Systems Review of Systems: ROS: Gen: Denies weakness, fevers, weight loss Eyes: No eye redness, or pain, no recent vision changes Resp: No SOB, no cough Cardio: No palpitations/irregular beats, no chest pain GI: As per HPI, otherwise (-) : Denies pain on urination Skin: No jaundice, itching or new rashes Physical Exam Constitutional: WD/WN, vitals as above Eyes: PERRL, conjunctivae normal, anicteric sclerae ENMT: external ear and nose normal, oropharynx normal Neck: trachea midline, no thyromegaly Respiratory: normal respiratory effort, lungs clear to auscultation Cardiovascular: RRR, no murmur, no edema Gastrointestinal (Abdomen): normal bowel sounds, soft, nontender, no hepatosplenomegaly (except very mild LLQ tenderness) Skin: no rashes, warm and dry Neurologic: PERRL, EOMI, accommodation nl, no face palsy, no dysarthria Psychiatric: Apperance: appropriately dressed Lymphatic: no cervical or axillary lymphadenopathy Results & Data Vital Signs (Past 12 Hours) Vital Signs Temp Pulse Pulse Resp BP BP Pulse Ox 06/26/23 08:35 37.2 C 98 H 18 131/81 98 06/26/23 08:04 37.5 C 91 H 20 137/76 97 06/26/23 03:50 37.2 C 72 18 140/77 99 06/25/23 22:57 36.7 C 93 H 20 148/88 H 99 O2 Del Method 06/26/23 08:35 Room Air 06/26/23 08:04 Room Air 06/26/23 03:50 Room Air 06/25/23 22:57 Room Air Laboratory Results WBC 5.5, Hb 8.7, Hct 25, plts 179, Na 141, K 3.5, Cl 109, CO2 28, BN 27, Cr 0.73, glucose 97 Diagnostic Findings CTAP w IV 06/25/22: 1. No bowel wall thickening or obstruction. 2. Moderate fecal retention. 3. The bladder is moderately distended. No bladder wall thickening. 4. Left-sided nephrolithiasis. No hydronephrosis. 5. Normal appendix. 6. Additional findings as described above.
[2023-06-26] MEDS ORDERED: LIDOCAINE 2% 2 ML VIAL/AMP(20MG/ML) INFIL ONE ×2 (09:22)
[2023-06-26] MEDS ORDERED: PROPOFOL IV EMULSION 10 MG/ML 20 ML VIAL IV ONE ×3 (09:22→09:56)
[2023-06-26] MEDS ORDERED: PHENYLEPHRINE 100MCG/ML 10ML SYR IV ONE (09:56)
--- NOTE | 2023-06-26 10:01 | GI REPORT ---
Patient Name: Erick Guajardo Procedure Date: 06/26/2023 9:21 AM Date of : 1990 Admit Type: Inpatient Age: 32 Gender: Male Attending MD: Maikol José MD, Procedure: Upper GI endoscopy Providers: Maikol José MD Referring MD: Vicky Champion M.d. Indications: Hematemesis Medicines: Propofol per Anesthesia Complications: No immediate complications. Estimated Blood Loss: Estimated blood loss: none. Procedure: Pre-Anesthesia Assessment: - Prior to the procedure, a History and Physical was performed, and patient medications, allergies and sensitivities were reviewed. The patient's tolerance of previous anesthesia was reviewed. - The risks and benefits of the procedure and the sedation options and risks were discussed with the patient. All questions were answered and informed consent was obtained. - Patient identification and proposed procedure were verified prior to the procedure by the physician and the nurse. The procedure was verified in the procedure room. - Pre-procedure physical examination revealed no contraindications to sedation. After obtaining informed consent, the endoscope was passed under direct vision. Throughout the procedure, the patient's blood pressure, pulse, and oxygen saturations were monitored continuously. The Endoscope was introduced through the mouth, and advanced to the second part of duodenum. The upper GI endoscopy was accomplished without difficulty. The patient tolerated the procedure well. Findings: The examined esophagus was normal. A large hiatal hernia with multiple Joseph ulcers was found at the GE junction. One 5 mm ulcer had active bleeding. For hemostasis, one hemostatic clip was successfully placed (MR conditional). Bleeding persisted hence it was injected with 3 mL of a 0.1 mg/mL solution of epinephrine for hemostasis. Bleeding persisted hence one band was successfully placed. Bleeding had stopped at the end of the procedure after band placement. The entire examined stomach was normal. The duodenal bulb and second portion of the duodenum were normal. Impression: - Normal esophagus. - Large hiatal hernia with multiple Joseph ulcers. One ulcer had active bleeding which was sucessfully controlled with a band. - Normal stomach. - Normal duodenal bulb and second portion of the duodenum. - No specimens collected. Recommendation: - [facility]. - Clear liquid diet for 2 days. - No aspirin, ibuprofen, naproxen, or other non-steroidal anti-inflammatory drugs for 5 days. - Follow an antireflux regimen. - Use a proton pump inhibitor IV then PO BID 40 mg upon discharge for 3 months. - Repeat upper endoscopy in 3 months to check healing. Maikol José MD 06/26/2023 10:01:25 AM This report has been signed electronically. Note Initiated On: 06/26/2023 9:21 AM Number of Addenda: 0 I attest to the content of the Intraoperative Record and orders documented therein, exceptions below {[id number]}
[2023-06-26] MEDS: MAGNESIUM SULFATE / D5W 1 GM/100 ML BAG IV SCH ×3 (10:57→14:36)
--- NOTE | 2023-06-26 12:16 | Anesthesiology Progress Note ---
Date of Service June 26, 2023 Anesthesia Post Procedure Vital Signs Vital Signs: Temp Pulse Pulse Pulse Resp BP BP 06/26/23 11:49 98.4 F 88 16 06/26/23 11:16 99.0 F 81 19 133/75 06/26/23 10:58 85 16 06/26/23 10:30 87 16 06/26/23 10:15 95 H 16 06/26/23 10:00 120 H 16 06/26/23 09:48 82 06/26/23 08:35 99.0 F 98 H 18 06/26/23 08:04 99.5 F 91 H 20 137/76 06/26/23 03:50 99.0 F 72 18 140/77 06/25/23 22:57 98.1 F 93 H 20 148/88 H 06/25/23 19:02 99.5 F 94 H 18 125/71 06/25/23 18:29 109 H 06/25/23 16:58 99.9 F H 102 H 18 124/72 06/25/23 14:30 92 H 16 06/25/23 14:30 129/81 06/25/23 14:00 163/90 H 06/25/23 14:00 101 H 14 06/25/23 13:30 105 H 12 06/25/23 13:30 142/77 H 06/25/23 13:00 108 H 15 06/25/23 13:00 157/95 H 06/25/23 12:48 123 H 06/25/23 12:46 114 H 15 06/25/23 12:24 98 H 20 BP Pulse Ox O2 Del Method 06/26/23 11:49 131/72 98 Room Air 06/26/23 11:16 96 Room Air 06/26/23 10:58 137/81 98 Room Air 06/26/23 10:30 112/59 L 95 Room Air 06/26/23 10:15 93/47 L 96 Room Air 06/26/23 10:00 98/43 L 98 Room Air 06/26/23 09:48 06/26/23 08:35 131/81 98 Room Air 06/26/23 08:04 97 Room Air 06/26/23 03:50 99 Room Air 06/25/23 22:57 99 Room Air 06/25/23 19:02 99 Room Air 06/25/23 18:29 01/15/24 16:58 100 Room Air 06/25/23 14:30 06/25/23 14:30 06/25/23 14:00 06/25/23 14:00 97 06/25/23 13:30 100 06/25/23 13:30 06/25/23 13:00 06/25/23 13:00 06/25/23 12:48 06/25/23 12:46 98 06/25/23 12:24 97 Room Air Transfer of Care Handoff Completed per policy Notes Mental Status: alert / awake / arousable and participated in evaluation Patient Amnestic to Procedure: Yes Nausea / Vomiting: adequately controlled Pain: adequately controlled Airway Patency, RR, SpO2: stable & adequate BP & HR: stable & adequate Hydration State: stable & adequate Anesthetic Complications: no major complications apparent and Pt Satisfied with anesthetic care
[2023-06-26] MEDS: PANTOprazole 40 MG in SYRINGE 0 ML IV SCH (20:02)
[2023-06-27] MEDS: ACETAMINOPHEN 325 MG TAB PO PRN ×2 (00:51→08:16)
--- NOTE | 2023-06-27 05:17 | Hospitalist Progress Note ---
Date of Service June 26, 2023 Assessment & Plan (1) Gastric ulcer: (2) Acute GI bleeding: Plan: Episodes of bloody emesis Hgb stable at 11, downtrended to 8.7 s/p EGD on 06/26- noted bleeding gastric ulcers Appreciate GI recs: "Clear liquid diet for 2 days. - No aspirin, ibuprofen, naproxen, or other non-steroidal anti-inflammatory drugs for 5 days. - Follow an antireflux regimen. - Use a proton pump inhibitor IV then PO BID 40 mg upon discharge for 3 months. 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 Pt notified on 06/26 (6) Hematemesis: Plan: As per GI bleed above (7) Hypomagnesemia: Plan: Replete as needed Admission and Anticipated Discharge Date Admission Date: June 25, 2023 Subjective Pt was seen in AM laying in bed, guards at bedside. Denied acute concerns at that time. Later, in room once more and discussed MRI findings of macroadenoma with pt. Review of Systems Review of Systems: All systems reviewed & are unremarkable except as noted in Subjective Physical Exam Physical Exam: General: Alert, oriented. No acute distress Skin: No noted rashes or bruises Psych: Appropriate mood and affect Neuro: No gross deficits HEENT: NC/AT Chest: Nontender to palpation. CV: RRR Resp: Breath sounds clear bilaterally, no increased effort of breathing. Abdomen: soft, nontender, nondistended. Extremities: No edema in lower extremities bilaterally. Results & Data Results & Data Vital Signs (Past 12 Hours) Vital Signs Temp Pulse Pulse Pulse Resp BP BP 06/26/23 14:34 36.9 C 87 17 135/74 06/26/23 13:53 37.3 C 78 14 129/72 06/26/23 12:59 37.0 C 83 16 135/70 06/26/23 12:18 37.0 C 84 16 122/73 06/26/23 11:49 36.9 C 88 16 131/72 06/26/23 11:16 37.2 C 81 19 133/75 06/26/23 10:58 85 16 137/81 06/26/23 10:30 87 16 112/59 L 06/26/23 10:15 95 H 16 93/47 L 06/26/23 10:00 120 H 16 98/43 L 06/26/23 09:48 82 06/26/23 08:35 37.2 C 98 H 18 131/81 06/26/23 08:04 37.5 C 91 H 20 137/76 06/26/23 03:50 37.2 C 72 18 140/77 Pulse Ox O2 Del Method 06/26/23 14:34 96 Room Air 06/26/23 13:53 98 Room Air 06/26/23 12:59 98 Room Air 06/26/23 12:18 93 Room Air 06/26/23 11:49 98 Room Air 06/26/23 11:16 96 Room Air 06/26/23 10:58 98 Room Air 06/26/23 10:30 95 Room Air 06/26/23 10:15 96 Room Air 06/26/23 10:00 98 Room Air 06/26/23 09:48 06/26/23 08:35 98 Room Air 06/26/23 08:04 97 Room Air 06/26/23 03:50 99 Room Air (3) Anemia Anemia type: unspecified type Qualified Code(s): D64.9 - Anemia, unspecified (5) Acute head trauma Encounter type: initial encounter Qualified Code(s): S09.90XA - Unspecified injury of head, initial encounter (6) Hematemesis Nausea presence: with nausea Qualified Code(s): K92.0 - Hematemesis
[2023-06-27 06:44] LABS: Hemoglobin 7.2 g/dl (14.0-18.0); Mean Corpuscular Hemoglobin 29.6 pg (25.0-34.0); Mean Corpuscular Hgb Conc 32.7 g/dL (32.0-36.0); Mean Corpuscular Volume 90.5 fL (80.0-100.0); Mean Platelet Volume 10.5 fL (9.4-12.4); Platelet Count 148 K/uL (130-400); RDW Coefficient of Variation 12.2 % (11.5-14.5); RDW Standard Deviation 39.8 fL (36.4-46.3); Red Blood Count 2.43 M/uL (4.70-6.10); White Blood Count 4.66 K/ul (4.8-10.8)
[2023-06-27] MEDS: SODIUM CHLORIDE 0.9% 1,000 ML IV SCH ×3 (07:11→22:34)
[2023-06-27 07:26] LABS: BUN Creatinine Ratio 21.9 (10-20); Calcium 8.7 mg/dl (8.6-10.3); Creatinine Clr Calc Pharmacy 213.3 ml/min; Est GFR (African American) 148.1 ml/min; Est GFR (Non-African American) 127.7 ml/min; Potassium 3.8 mmol/L (3.5-5.1)
[2023-06-27] MEDS: PANTOprazole 40 MG in SYRINGE 0 ML IV SCH (08:12)
--- NOTE | 2023-06-27 09:26 | Gastroenterology Progress Note ---
Date of Service June 27, 2023 Assessment & Plan (1) Gastric ulcer: Plan 1. PPI Drip through tomorrow (total of 72 hrs). Then po BID x 2 months. 2. Clear liquids and meds po only today. 3. Monitor outputs for further GI bleeding though would expect one BM with old blood. 4. Repeat EGD in 3m. Our office will contact him to arrange. Admission and Anticipated Discharge Date Admission Date: June 25, 2023 Supervising Physician Co-Signing Physician Notes I performed a history and physical examination of the patient today, including specifically on physical exam - soft abdomen. I have discussed the patient's management with the advanced practitioner. Please refer to the nurse practitioner's note for the documented findings and plan of care. BUN normalized. No BM since admission hence likely bleeding resolved. Transfuse PRBC as needed if it drops <7. Recall GI if needed. Subjective 32, male admitted 06/25 for coffee grounds emesis x 3/anemia. Hb 11 on arrival to 8.7 yesterday for 7.2 this morning. BUN normalized. No emesis or BMs since prior to endoscopy. Review of Systems Review of Systems: ROS: Gen: Denies weakness, fevers, weight loss Eyes: No eye redness, or pain, no recent vision changes Resp: No SOB, no cough Cardio: No palpitations/irregular beats, no chest pain GI: As per HPI, otherwise (-) : Denies pain on urination Skin: No jaundice, itching or new rashes Physical Exam Constitutional: WD/WN, vitals as above Eyes: PERRL, conjunctivae normal, anicteric sclerae ENMT: external ear and nose normal, oropharynx normal Neck: trachea midline, no thyromegaly Respiratory: normal respiratory effort, lungs clear to auscultation Cardiovascular: RRR, no murmur, no edema Gastrointestinal (Abdomen): normal bowel sounds, soft, nontender, no hepatosplenomegaly (except very mild LLQ tenderness) Skin: no rashes, warm and dry Neurologic: PERRL, EOMI, accommodation nl, no face palsy, no dysarthria Psychiatric: Apperance: appropriately dressed Lymphatic: no cervical or axillary lymphadenopathy Results & Data Vital Signs (Past 12 Hours) Vital Signs Temp Pulse Resp BP Pulse Ox O2 Del Method 06/27/23 07:47 36.9 C 72 20 145/85 H 98 Room Air 06/27/23 05:44 36.6 C 67 20 137/74 97 Room Air 06/26/23 23:14 37.2 C 79 18 122/78 97 Room Air Laboratory Results Hb 4.6, Hct 7.2, Plts 148, Na 139, K 3.8, Cl 108, CO2 28, BUN 14, Cr 0.64, glucose 93. Diagnostic Findings EGD yesterday: large HH w Joseph lesions, one 55mm ulcer w active bleed clipped, injected, banded.
--- NOTE | 2023-06-27 11:11 | Hospitalist Progress Note ---
Date of Service June 27, 2023 Assessment & Plan (1) Syncope and collapse: Plan: Reported loss of consciousness following a fall preceded by left lower abdominal pain, 3 episodes of nausea and vomiting with coffee-ground emesis Likely vasovagal No more episodes since admission Did not have any arrhythmias and or any significant head injury from the fall Remains medically stable Will get orthostatic vitals (2) Acute GI bleeding: Plan: Episodes of bloody emesis Hemoglobin was 11 at presentation and went down to 7.2 as of 06/27/2023 s/p EGD on 06/26- noted bleeding gastric ulcers Appreciate GI recs: "Clear liquid diet for 2 days. - No aspirin, ibuprofen, naproxen, or other non-steroidal anti-inflammatory drugs for 5 days. - Follow an antireflux regimen. - Use a proton pump inhibitor IV then PO BID 40 mg upon discharge for 3 months. 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 Will get pituitary MRI with and without contrast for further evaluation of the uterine mass Is not having any acute neurological symptoms from that Will need to have an appointment with outpatient neurosurgery (5) Gastric ulcer: Plan: As above (6) Anemia: Plan: Secondary to GI bleed (7) Lower abdominal pain: Plan: Stable (8) Hematemesis: Plan: As per GI bleed above (9) Hypomagnesemia: Plan: Replete as needed Admission and Anticipated Discharge Date Admission Date: June 25, 2023 Subjective 06/27/2023 The patient was seen and examined in telemetry unit He has been feeling much better and on asking more questions complains to have m inimal headache bifrontally without any other symptoms suggestive of neurologic Denies any other significant symptoms-been ambulating in the room without any difficulties Review of Systems Review of Systems: All systems reviewed and are unremarkable except as noted below Neurologic: Minimal headache without any other associated neurological symptoms Physical Exam Physical Exam: Lying in bed comfortably Constitutional: well developed and well nourished; not ill appearing Eyes: PERRL, conjunctivae normal, anicteric sclerae ENMT: external ear and nose normal, oropharynx normal Neck: trachea midline, no thyromegaly Respiratory: no respiratory distress Auscultation: lungs clear to auscultation bilaterally Cardiovascular: Rate/Rhythm: regular rate and regular rhythm; not tachycardic Heart Sounds: normal S1 and normal S2; no murmur Extremities: no edema Gastrointestinal (Abdomen): Inspection/Auscultation: normal bowel sounds; abdomen not distended Percussion/Palpation: abdomen soft; abdomen nontender Musculoskeletal: No acute arthritis involving any of the joint Neurologic: normal touch/pain/proprioception and moves all extremities; no focal motor deficits Psychiatric: A+Ox3, euthymic affect Lymphatic: no cervical or axillary lymphadenopathy Results & Data Results & Data Vital Signs (Past 12 Hours) Vital Signs Temp Pulse Resp BP Pulse Ox O2 Del Method 06/27/23 07:47 36.9 C 72 20 145/85 H 98 Room Air 06/27/23 05:44 36.6 C 67 20 137/74 97 Room Air 06/26/23 23:14 37.2 C 79 18 122/78 97 Room Air Laboratory Results Short CBC 06/27/23 Range/Units 06:25 WBC 4.66 L (4.8-10.8) K/ul Hgb 7.2 L (14.0-18.0) g/dl Hct 22.0 L (42.0-52.0) % Plt Count 148 (130-400) K/uL [facility] 06/27/23 06:25 Sodium 139 Potassium 3.8 Chloride 108 H Carbon Dioxide 28 BUN 14 Creatinine 0.64 Glucose 93 Calcium 8.7 Medications Administered Current Inpatient Medications Acetaminophen (Acetaminophen 325 Mg Tab) 650 mg PO Q4H PRN PRN Reason: Pain or Fever Stop: 07/25/23 16:56 Last Admin: 06/27/23 08:16 Dose: 650 mg Sodium Chloride (Nss) 1,000 mls @ 125 mls/hr IV .Q8H RIANNA Stop: 07/26/23 00:29 Last Admin: 06/27/23 07:11 Dose: 125 mls/hr Pantoprazole Sodium 40 mg/ (Dextrose) 100 mls @ 20 mls/hr IV Q5H RIANNA Stop: 07/27/23 12:59 Ondansetron HCl (Ondansetron Inj 2 Mg/Ml 2 Ml Vial) 4 mg IV Q6H PRN PRN Reason: Nausea Stop: 07/25/23 16:56 Polyethylene Glycol (Polyethylene (Miralax) 17 Gm Pack) 17 gm PO DAILY PRN PRN Reason: Constipation Stop: 07/25/23 16:56 (3) Acute head trauma Encounter type: initial encounter Qualified Code(s): S09.90XA - Unspecified injury of head, initial encounter (6) Anemia Anemia type: unspecified type Qualified Code(s): D64.9 - Anemia, unspecified (8) Hematemesis Nausea presence: with nausea Qualified Code(s): K92.0 - Hematemesis
[2023-06-27] MEDS ORDERED: GADOBUTROL 65ML VIAL IV ONE (12:45)
--- NOTE | 2023-06-27 13:07 | Magnetic Resonance Report ---
MR brain pituitary wo/w con HISTORY: 32 years-old Male Pituitary macroadenoma COMPARISON: Brain MRI 06/25/2023 TECHNIQUE: Multiplanar multisequence [facility] the [facility] with and [facility] FINDINGS: Mild mucosal thickening within the ethmoid air cells again noted. The mastoid air cells are clear. Ag ain seen is a T1 and T2 heterogeneous suprasellar expansile lesion which abuts the left side of the c avernous internal carotid artery. This measures approximately 2.7 x 2.1 x 2.1 cm. This is predominant ly along the left side of the sella turcica and contains internal central cystic foci and intrinsic f oci of increased T1 signal suggesting proteinaceous material versus hemorrhage. No significant displa cement of the pituitary stalk. This does not appear to abut the optic chiasm and demonstrates no sign ificant enhancement.. IMPRESSION: Unchanged 2.7 cm heterogeneous sellar/suprasellar mass suggestive of a macroadenoma. ACT 112: Negative or not required by law. The above report was generated using voice recognition software. It may contain grammatical, syntax o r spelling errors. Electronically signed by: Jose Roche M.D. 06/27/2023 1:04 PM
[2023-06-27] MEDS: PANTOprazole 40 MG in DEXTROSE 5% MINI-B 100 ML IV SCH ×3 (13:25→22:29)
[2023-06-28] MEDS: PANTOprazole 40 MG in DEXTROSE 5% MINI-B 100 ML IV SCH ×4 (02:54→20:25)
[2023-06-28] MEDS: SODIUM CHLORIDE 0.9% 1,000 ML IV SCH ×3 (06:46→22:38)
[2023-06-28 07:37] LABS: Hematocrit (blood only) 20.4 % (42.0-52.0); Hemoglobin 6.9 g/dl (14.0-18.0); Mean Corpuscular Hemoglobin 29.5 pg (25.0-34.0); Mean Corpuscular Hgb Conc 33.8 g/dL (32.0-36.0); Mean Corpuscular Volume 87.2 fL (80.0-100.0); Mean Platelet Volume 10.9 fL (9.4-12.4); Platelet Count 159 K/uL (130-400); RDW Standard Deviation 38.4 fL (36.4-46.3); Red Blood Count 2.34 M/uL (4.70-6.10); White Blood Count 3.83 K/ul (4.8-10.8)
[2023-06-28 07:42] LABS: BUN Creatinine Ratio 13.8 (10-20); Calcium 8.8 mg/dl (8.6-10.3); Est GFR (African American) 146.1 ml/min; Magnesium 1.6 mg/dl (1.7-2.4); Phosphorus 4.3 mg/dl (2.5-4.9); Potassium 3.4 mmol/L (3.5-5.1)
[2023-06-28 07:45] LABS: Basophils # (auto) 0.01 K/uL (0.00-0.20); Basophils % (auto) 0.3 %; Eosinophils # (auto) 0.21 K/uL (0.00-0.50); Eosinophils % (auto) 5.5 %; Immature Granulocytes # (auto) 0.01 K/uL (0.01-0.20); Immature Granulocytes % (auto) 0.3 %; Lymphocytes # (auto) 1.47 K/uL (1.20-3.40); Lymphocytes % (auto) 38.4 %; Monocytes # (auto) 0.35 K/uL (0.11-0.59); Monocytes % (auto) 9.1 %; Neutrophils # (auto) 1.78 K/uL (1.40-6.50); Neutrophils % (auto) 46.4 %; RBC Morphology Unremarkable
[2023-06-28] MEDS ORDERED: SODIUM CHLORIDE 0.9% 250 ML IV PRN (08:13)
[2023-06-28] MEDS ORDERED: POTASSIUM CHLORIDE CRTAB 20 MEQ TABCR PO STA (08:42)
[2023-06-28] MEDS ORDERED: MAGNESIUM SULFATE / D5W 1 GM/100 ML BAG IV ONE (08:42)
--- NOTE | 2023-06-28 14:28 | Hospitalist Progress Note ---
Date of Service June 28, 2023 Assessment & Plan (1) Syncope and collapse: Plan: Reported loss of consciousness following a fall preceded by left lower abdominal pain, 3 episodes of nausea and vomiting with coffee-ground emesis Likely vasovagal No more episodes since admission Did not have any arrhythmias and or any significant head injury from the fall Remains medically stable Will get orthostatic vitals No dizziness with ambulation (2) Acute GI bleeding: Plan: Episodes of bloody emesis Hemoglobin was 11 at presentation and went down to 7.2 as of 06/27/2023 s/p EGD on 06/26- noted bleeding gastric ulcers Appreciate GI recs: "Clear liquid diet for 2 days. - No aspirin, ibuprofen, naproxen, or other non-steroidal anti-inflammatory drugs for 5 days. - Follow an antireflux regimen. - Use a proton pump inhibitor IV then PO BID 40 mg upon discharge for 3 months. 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 Will get pituitary MRI with and without contrast for further evaluation of the uterine mass Is not having any acute neurological symptoms from that Will need to have an appointment with outpatient neurosurgery MRI of the pituitary gland confirmed macro adenoma Patient remains free from any symptoms Will be evaluated by neurosurgery as an outpatient (5) Gastric ulcer: Plan: As above Does not have any acute bleeding (6) Anemia: Plan: Secondary to GI bleed (7) Lower abdominal pain: Plan: Stable (8) Hematemesis: Plan: As per GI bleed above (9) Hypomagnesemia: Plan: Replete as needed Admission and Anticipated Discharge Date Admission Date: June 25, 2023 Subjective 06/27/2023 The patient was seen and examined in telemetry unit He has been feeling much better and on asking more questions complains to have minimal headache bifrontally without any other symptoms suggestive of neurologic Denies any other significant symptoms-been ambulating in the room without any difficulties 06/28/2023 The patient was seen and examined in telemetry unit He has been stable and denies any more headache Does not have any black stool but the hemoglobin dropped to 6.9 today He denies any other significant symptoms Review of Systems Review of Systems: All systems reviewed and are unremarkable except as noted below Neurologic: Minimal headache without any other associated neurological symptoms Physical Exam Physical Exam: Lying in bed comfortably Constitutional: well developed and well nourished; not ill appearing Eyes: PERRL, conjunctivae normal, anicteric sclerae ENMT: external ear and nose normal, oropharynx normal Neck: trachea midline, no thyromegaly Respiratory: no respiratory distress Auscultation: lungs clear to auscultation bilaterally Cardiovascular: Rate/Rhythm: regular rate and regular rhythm; not tachycardic Heart Sounds: normal S1 and normal S2; no murmur Extremities: no edema Gastrointestinal (Abdomen): Inspection/Auscultation: normal bowel sounds; abdomen not distended Percussion/Palpation: abdomen soft; abdomen nontender Neurologic: normal touch/pain/proprioception and moves all extremities; no focal motor deficits Psychiatric: A+Ox3, euthymic affect Lymphatic: no cervical or axillary lymphadenopathy Results & Data Results & Data Vital Signs (Past 12 Hours) Vital Signs Temp Pulse Pulse Pulse Resp BP BP 06/28/23 13:30 148/74 H 06/28/23 13:30 63 15 06/28/23 13:25 64 14 06/28/23 13:20 60 14 06/28/23 13:17 36.8 C 60 16 147/78 H 06/28/23 13:15 79 15 06/28/23 10:46 72 06/28/23 07:58 36.5 C 87 63 20 154/77 H 06/28/23 03:00 36.6 C 58 L 17 127/71 Pulse Ox O2 Del Method 06/28/23 13:30 06/28/23 13:30 96 Room Air 06/28/23 13:25 97 Room Air 06/28/23 13:20 97 Room Air 01/18/24 13:17 96 06/28/23 13:15 95 Room Air 06/28/23 10:46 06/28/23 07:58 98 Room Air 06/28/23 03:00 96 Room Air Laboratory Results Short CBC 06/28/23 Range/Units 07:05 WBC 3.83 L (4.8-10.8) K/ul Hgb 6.9 L* (14.0-18.0) g/dl Hct 20.4 L* (42.0-52.0) % Plt Count 159 (130-400) K/uL BMP 06/28/23 07:05 Sodium 140 Potassium 3.4 L Chloride 108 H Carbon Dioxide 27 BUN 9 Creatinine 0.65 Glucose 95 Calcium 8.8 Medications Administered Current Inpatient Medications Acetaminophen (Acetaminophen 325 Mg Tab) 650 mg PO Q4H PRN PRN Reason: Pain or Fever Stop: 07/25/23 16:56 Last Admin: 06/27/23 08:16 Dose: 650 mg Sodium Chloride (Nss) 1,000 mls @ 125 mls/hr IV .Q8H RIANNA Stop: 07/26/23 00:29 Last Admin: 06/28/23 06:46 Dose: 125 mls/hr Pantoprazole Sodium 40 mg/ (Dextrose) 100 mls @ 20 mls/hr IV Q5H RIANNA Stop: 07/27/23 12:59 Last Admin: 06/28/23 09:32 Dose: 8 mg/hr, 20 mls/hr Sodium Chloride (Nss) 250 mls @ 15 mls/hr IV .[id number] PRN PRN Reason: For Transfusion Duration Stop: 06/28/23 18:13 Ondansetron HCl (Ondansetron Inj 2 Mg/Ml 2 Ml Vial) 4 mg IV Q6H PRN PRN Reason: Nausea Stop: 07/25/23 16:56 Polyethylene Glycol (Polyethylene (Miralax) 17 Gm Pack) 17 gm PO DAILY PRN PRN Reason: Constipation Stop: 07/25/23 16:56 (3) Acute head trauma Encounter type: initial encounter Qualified Code(s): S09.90XA - Unspecified injury of head, initial encounter (6) Anemia Anemia type: unspecified type Qualified Code(s): D64.9 - Anemia, unspecified (8) Hematemesis Nausea presence: with nausea Qualified Code(s): K92.0 - Hematemesis
[2023-06-29] MEDS: PANTOprazole 40 MG in DEXTROSE 5% MINI-B 100 ML IV SCH ×3 (01:28→13:00)
[2023-06-29] MEDS: SODIUM CHLORIDE 0.9% 1,000 ML IV SCH (06:36)
--- NOTE | 2023-06-29 06:39 | Electrocardiogram Report ---
Test Reason : Blood Pressure : / mmHG Vent. Rate : 087 BPM Atrial Rate : 087 BPM P-R Int : 142 ms QRS Dur : 128 ms QT Int : 402 ms P-R-T Axes : 029 079 027 degrees QTc Int : 483 ms Normal sinus rhythm Right bundle branch block Abnormal ECG When compared with ECG of 25-JUN-2023 13:32, QT has lengthened Confirmed by Kavon Baez ([id number]) on 06/29/2023 6:39:06 AM Referred By: Ivy BLUNT Confirmed By:Kavon Baez
[2023-06-29 07:08] LABS: Basophils # (auto) 0.01 K/uL (0.00-0.20); Basophils % (auto) 0.3 %; Eosinophils # (auto) 0.19 K/uL (0.00-0.50); Eosinophils % (auto) 5.1 %; Hematocrit (blood only) 23.4 % (42.0-52.0); Immature Granulocytes # (auto) 0.01 K/uL (0.01-0.20); Immature Granulocytes % (auto) 0.3 %; Lymphocytes # (auto) 1.37 K/uL (1.20-3.40); Lymphocytes % (auto) 36.9 %; Mean Corpuscular Hemoglobin 29.3 pg (25.0-34.0); Mean Corpuscular Hgb Conc 34.2 g/dL (32.0-36.0); Mean Corpuscular Volume 85.7 fL (80.0-100.0); Mean Platelet Volume 10.4 fL (9.4-12.4); Monocytes % (auto) 8.1 %; Neutrophils # (auto) 1.83 K/uL (1.40-6.50); Neutrophils % (auto) 49.3 %; Platelet Count 167 K/uL (130-400); RDW Coefficient of Variation 12.4 % (11.5-14.5); RDW Standard Deviation 38.4 fL (36.4-46.3); Red Blood Count 2.73 M/uL (4.70-6.10); White Blood Count 3.71 K/ul (4.8-10.8)
[2023-06-29 07:34] LABS: BUN Creatinine Ratio 10.8 (10-20); Est GFR (African American) 146.1 ml/min; Potassium 3.5 mmol/L (3.5-5.1)
--- NOTE | 2023-06-29 12:51 | Hospitalist Progress Note ---
Date of Service June 29, 2023 Assessment & Plan (1) Syncope and collapse: Plan: Reported loss of consciousness following a fall preceded by left lower abdominal pain, 3 episodes of nausea and vomiting with coffee-ground emesis Likely vasovagal No more episodes since admission Did not have any arrhythmias and or any significant head injury from the fall Remains medically stable Will get orthostatic vitals No dizziness with ambulation Has been ambulating in the room and in the hallway without any difficulties (2) Acute GI bleeding: Plan: Episodes of bloody emesis Hemoglobin was 11 at presentation and went down to 7.2 as of 06/27/2023 s/p EGD on 06/26- noted bleeding gastric ulcers Appreciate GI recs: "Clear liquid diet for 2 days. - No aspirin, ibuprofen, naproxen, or other non-steroidal anti-inflammatory drugs for 5 days. - Follow an antireflux regimen. - Use a proton pump inhibitor IV then PO BID 40 mg upon discharge for 3 months. - Repeat upper endoscopy in 3 months to check healing" Protonix drip switched to IV protonix BID at this time, clear liquid diet ordered Will need to monitor CBC for a day or 2 more before any plan for discharge Patient remains asymptomatic Hemoglobin dropped to 6.9 as of 06/28/2023 He will get 1 unit of blood transfusion today and if the hemoglobin is stable and without any other symptoms he will be discharged tomorrow Hemoglobin went up to 8.0 today without any symptoms and no black stool He will be discharged this afternoon (3) Acute head trauma: Plan: CT of the head shows suprasellar mass MRI brain noted the same but pt could not complete the exam, 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 Will get pituitary MRI with and without contrast for further evaluation of the uterine mass Is not having any acute neurological symptoms from that Will need to have an appointment with outpatient neurosurgery MRI of the pituitary gland confirmed macro adenoma Patient remains free from any symptoms Will be evaluated by neurosurgery as an outpatient Discussed with the [facility] provider to make an appointment for the patient with neurosurgery as an outpatient (5) Gastric ulcer: Plan: As above Does not have any acute bleeding (6) Anemia: Plan: Secondary to GI bleed (7) Lower abdominal pain: Plan: Stable (8) Hematemesis: Plan: As per GI bleed above (9) Hypomagnesemia: Plan: Replete as needed Admission and Anticipated Discharge Date Admission Date: June 25, 2023 Subjective 06/27/2023 The patient was seen and examined in telemetry unit He has been feeling much better and on asking more questions complains to have minimal headache bifrontally without any other symptoms suggestive of neurologic Denies any other significant symptoms-been ambulating in the room without any difficulties 06/28/2023 The patient was seen and examined in telemetry unit He has been stable and denies any more headache Does not have any black stool but the hemoglobin dropped to 6.9 today He denies any other significant symptoms 06/29/2023 The patient was seen and examined in telemetry unit He has been feeling much better and denies any send His hemoglobin went up to 8.0 today He will be [facility] back to [facility] this afternoon Review of Systems Review of Systems: All systems reviewed and are unremarkable except as noted below Neurologic: Minimal headache without any other associated neurological symptoms Physical Exam Physical Exam: Lying in bed comfortably Constitutional: well developed and well nourished; not ill appearing Eyes: PERRL, conjunctivae normal, anicteric sclerae ENMT: external ear and nose normal, oropharynx normal Neck: trachea midline, no thyromegaly Respiratory: no respiratory distress Auscultation: lungs clear to auscultation bilaterally Cardiovascular: Rate/Rhythm: regular rate and regular rhythm; not tachycardic Heart Sounds: normal S1 and normal S2; no murmur Extremities: no edema Gastrointestinal (Abdomen): Inspection/Auscultation: normal bowel sounds; abdomen not distended Percussion/Palpation: abdomen soft; abdomen nontender Neurologic: normal touch/pain/proprioception and moves all extremities; no focal motor deficits Psychiatric: A+Ox3, euthymic affect Lymphatic: no cervical or axillary lymphadenopathy Results & Data Results & Data Vital Signs (Past 12 Hours) Vital Signs Temp Pulse Resp BP Pulse Ox O2 Del Method 06/29/23 10:50 36.8 C 75 18 143/76 H 97 Room Air 06/29/23 07:17 36.8 C 72 15 130/66 98 Room Air 06/29/23 03:00 36.8 C 65 13 131/78 94 Room Air Laboratory Results Short CBC 06/29/23 Range/Units 06:51 WBC 3.71 L (4.8-10.8) K/ul Hgb 8.0 L (14.0-18.0) g/dl Hct 23.4 L (42.0-52.0) % Plt Count 167 (130-400) K/uL BMP 06/29/23 06:51 Sodium 140 Potassium 3.5 Chloride 108 H Carbon Dioxide 27 BUN 7 Creatinine 0.65 Glucose 108 H Calcium 9.0 Medications Administered Current Inpatient Medications Acetaminophen (Acetaminophen 325 Mg Tab) 650 mg PO Q4H PRN PRN Reason: Pain or Fever Stop: 07/25/23 16:56 Last Admin: 06/27/23 08:16 Dose: 650 mg Sodium Chloride (Nss) 1,000 mls @ 125 mls/hr IV .Q8H RIANNA Stop: 07/26/23 00:29 Last Admin: 06/29/23 06:36 Dose: 125 mls/hr Pantoprazole Sodium 40 mg/ (Dextrose) 100 mls @ 20 mls/hr IV Q5H RIANNA Stop: 07/27/23 12:59 Last Admin: 06/29/23 06:36 Dose: 8 mg/hr, 20 mls/hr Ondansetron HCl (Ondansetron Inj 2 Mg/Ml 2 Ml Vial) 4 mg IV Q6H PRN PRN Reason: Nausea Stop: 07/25/23 16:56 Polyethylene Glycol (Polyethylene (Miralax) 17 Gm Pack) 17 gm PO DAILY PRN PRN Reason: Constipation Stop: 07/25/23 16:56 (3) Acute head trauma Encounter type: initial encounter Qualified Code(s): S09.90XA - Unspecified injury of head, initial encounter (6) Anemia Anemia type: unspecified type Qualified Code(s): D64.9 - Anemia, unspecified (8) Hematemesis Nausea presence: with nausea Qualified Code(s): K92.0 - Hematemesis
--- NOTE | 2023-06-29 18:56 | Electrocardiogram Report ---
Test Reason : Blood Pressure : / mmHG Vent. Rate : 068 BPM Atrial Rate : 068 BPM P-R Int : 150 ms QRS Dur : 130 ms QT Int : 422 ms P-R-T Axes : 027 089 031 degrees QTc Int : 448 ms Normal sinus rhythm Right bundle branch block Abnormal ECG When compared with ECG of 26-JUN-2023 05:15, No significant change was found Confirmed by Kavon Baez ([id number]) on 06/29/2023 6:56:21 PM Referred By: Ivy BLUNT Confirmed By:Kavon Baez
--- NOTE | 2023-06-30 07:17 | Discharge Summary ---
Date of Service June 29, 2023 Admission HPI Per Admitting Provider 32-year-old male with history of hypertension presented with evidence of fall. Patient does not remember how it happened. He was on the floor was cold and clammy, witnessed episode . Patient also mentions been having left lower abdominal pain for the past few days. Denies any trauma had no difficulty in walking . No radiation of the abdominal pain to the groin or to the back. He noted today that he had multiple episodes of nausea with vomiting coffee-ground. Also noted to be dizzy and found to be increasing dizzy while trying to get up from lying to sitting position .his initial blood tests showed a low hemoglobin of 11 with no previous comparison data. Patient has no fever, no cough, no chest pain, no shortness of breath Admission Exam Per Admitting Provider Physical Exam: HEENT:No JVD , Normocephalic , atraumatic CV: S1/S2+ , no murmurs Resp: Air entry present bilaterally.no crackles, no wheeze . GI: Abdomen non tender , no tenderness elicited in left lower quadrant. Musculoskeletal: examined for joint tenderness. Skin: no rashes Psych: Normal affect Neuro: Patient is awake alert not in distress , No focal neuro deficits noted Ext: no edema. Principal Diagnosis Acute gastric ulcer bleeding, syncope secondary to GI bleed, pituitary macroadenoma Discharge Exam Lying in bed comfortably Constitutional well developed and well nourished; not ill appearing Eyes PERRL, conjunctivae normal, anicteric sclerae ENMT external ear and nose normal, oropharynx normal Neck trachea midline, no thyromegaly Respiratory no respiratory distress Auscultation: lungs clear to auscultation bilaterally Cardiovascular Rate/Rhythm: regular rate and regular rhythm; not tachycardic Heart Sounds: normal S1 and normal S2; no murmur Extremities: no edema Gastrointestinal (Abdomen) Inspection/Auscultation: normal bowel sounds; abdomen not distended Percussion/Palpation: abdomen soft; abdomen nontender Neurologic normal touch/pain/proprioception and moves all extremities; no focal motor deficits Psychiatric A+Ox3, euthymic affect Lymphatic no cervical or axillary lymphadenopathy Discharge Data Allergies Allergy/AdvReac Type Severity Reaction Status Date / Time No Known Allergies Allergy Unverified 06/25/23 14:32 Consultations 06/25/23 15:19 ED Decision to Admit Stat 06/25/23 15:35 Consult Gastroenterology Routine Procedures Performed Operation Date: 06/26/23 17:45 Actual Procedures p EGD Hemostasis - Maikol José MD Ordered Studies 06/25/23 11:41 CT cervical spine wo con Stat CT head/brain wo con Stat 06/25/23 12:25 CT abd pelvis IV con only Stat 06/25/23 12:28 CT angio head w con Stat 06/25/23 15:35 MR brain wo con Routine 06/27/23 10:31 MRI Brain [MR brain pituitary wo/w con] Routine Hospital Course (1) Syncope and collapse: Reported loss of consciousness following a fall preceded by left lower abdominal pain, 3 episodes of nausea and vomiting with coffee-ground emesis Likely vasovagal No more episodes since admission Did not have any arrhythmias and or any significant head injury from the fall Remains medically stable Will get orthostatic vitals No dizziness with ambulation Has been ambulating in the room and in the hallway without any difficulties (2) Acute GI bleeding: Episodes of bloody emesis Hemoglobin was 11 at presentation and went down to 7.2 as of 06/27/2023 s/p EGD on 06/26- noted bleeding gastric ulcers Appreciate GI recs: "Clear liquid diet for 2 days. - No aspirin, ibuprofen, naproxen, or other non-steroidal anti-inflammatory drugs for 5 days. - Follow an antireflux regimen. - Use a proton pump inhibitor IV then PO BID 40 mg upon discharge for 3 months. - Repeat upper endoscopy in 3 months to check healing" Protonix drip switched to IV protonix BID at this time, clear liquid diet ordered Will need to monitor CBC for a day or 2 more before any plan for discharge Patient remains asymptomatic Hemoglobin dropped to 6.9 as of 06/28/2023 He will get 1 unit of blood transfusion today and if the hemoglobin is stable and without any other symptoms he will be discharged tomorrow Hemoglobin went up to 8.0 today without any symptoms and no black stool He will be discharged this afternoon (3) Acute head trauma: CT of the head shows suprasellar mass MRI brain noted the same but pt could not complete the exam, 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 Patient remains free from any symptoms Will be evaluated by neurosurgery as an outpatient Discussed with the nursing home provider to make an appointment for the patient with neurosurgery as an outpatient (5) Gastric ulcer: As above Does not have any acute bleeding (6) Anemia: Secondary to GI bleed (7) Lower abdominal pain: Stable (8) Hematemesis: As per GI bleed above (9) Hypomagnesemia: Replete as needed Total Time Total Time Spent Total Time Spent (In Minutes): 35 minutes Discharge Plan Discharge Items [facility] Disposition[facility] Reason For Visit: SYNCOPE Discharge Diagnosis: Acute gastric ulcer bleeding, syncope secondary to GI bleed, pituitary macroadenoma Condition on Discharge: Good Activity: Resume your previous activity Non-emergency contact: Primary Care Provider Call non-emergency contact if: you have any medication questions and your symptoms worsen Follow-up/Referrals: Ivy BLUNT [Primary Care Provider] - Diet: Regular Addtl Attending Provider Instructions: Please take it easy for the next few days Take your medications as advised You will need to have an appointment with neurosurgery as an outpatient for pituitary macroadenoma Will need EGD in 3 months Pending Studies at Discharge: No Stand-Alone Forms: My [facility] Skilled Items Patient informed of condition?: Yes Discharge Level of Care: Other Communicable Disease: No Discharge Prognosis: Stable Lines: None Urinary Catheter: No Medications and DC Order Prescriptions: New pantoprazole [Protonix] 40 mg tablet,delayed release (DR/EC) 40 mg PO BID 60 Days Qty: 120 0RF Continued lisinopril 40 mg Tablet 40 mg PO DAILY hydrochlorothiazide 12.5 mg Tablet 12.5 mg PO DAILY Discharge Orders: Discharge Order (Routine); Ordered 06/29/23 Ordered By: Devaughn Akbar Admission Data Admit Date/Time: 06/25/23 15:35 Attending Provider: Devaughn Akbar Admit Provider: Beny Fuller Primary Care Provider: Ivy BLUNT Other Providers: Liliana Flores; Beny Fuller; Vicky Avila Other Interventions: Discharge Summary Assessment (RN) Last Done: 06/29/23 13:24
== END 2023-06-29 14:20 | DRG 378 ==
LOC: ED 11:31 → SUATTDRO 15:35 → 2E 15:35